=== PATIENT | female | born 1990 | race Caucasian/White ===

== ENCOUNTER 2020-06-29 09:48 | Outpatient (REF) | payer OTHER, SELFPAY | END 2020-06-29 09:49 | disposition home or self-care (01) | LOC: HO.LNP 09:48 | PROVIDERS: Visit Provider Advanced Practice Midwife | DX: Z13.89 Encounter for screening for other disorder (principal) | CPT/HCPCS: 88141 ==

== ENCOUNTER 2020-06-30 11:02 | Outpatient (REF) | payer OTHER, SELFPAY | END 2020-06-30 11:03 | disposition home or self-care (01) | LOC: HO.LAB 11:02 | PROVIDERS: Visit Provider Advanced Practice Midwife | DX: Z01.419 Encounter for gynecological examination (general) (routine) without abnormal findings (principal) | CPT/HCPCS: 88142 ==

== ENCOUNTER 2020-08-14 08:04 | Emergency (ER) | payer OTHER, SELFPAY ==
[2020-08-14 09:02] VITALS: BP 110/78; PULSE 88; RESP 17; TEMP 37.3; O2SAT 98; BMI 26.2
[2020-08-14 09:46] LABS: MANUAL DIFF FLAG NO
[2020-08-14 09:48] LABS: Basophils Percent Auto 0.4 % (0-2); Eosinophils Percent Auto 0.4 % (0-4); Hematocrit 40.7 % (37-47); Hemoglobin 13.9 g/dl (12.0-16.0); Imm Gran Abs Auto 0.01 X10*3/uL (0.00-0.03); Imm Gran Pct Auto 0.1 % (0.0-0.4); Lymphocytes Absolute Auto 2.9 X10*3/uL (1.2-4.9); Lymphocytes Percent Auto 41.4 % (20-40); Mean Corpuscular HGB Conc 34.2 g/dl (31.0-35.0); Mean Corpuscular Volume 87.7 fL (80-98); Mean Platelet Volume 9.8 fL (9.4-12.3); Monocytes Absolute Auto 0.7 X10*3/uL (0.1-1.2); Monocytes Percent Auto 9.4 % (2-11); Neutrophils Absolute Auto 3.4 X10*3/uL (2.0-8.3); Neutrophils Percent Auto 48.3 % (45-73); Platelet Count 331 X10*3/uL (160-400); Red Blood Count 4.64 X10*6/uL (4.20-5.50); Red Cell Distribution Width 12.2 % (11.0-16.0)
[2020-08-14 09:50] LABS: Glucose Urine UA NEG (NEG); Leukocyte Esterase Urine 3+ (NEG); Nitrite Urine NEG (NEG); Urine Blood 2+ (NEG); Urine Ketones NEG (NEG); Urine Protein NEG (NEG-TRACE)
[2020-08-14] MEDS: 0.9 % Sodium Chloride 1,000 ML 999 ML IV (09:51)
[2020-08-14 09:52] LABS: Appearance Urine CLOUDY; Color Urine YELLOW; UPreg QC Valid YES
[2020-08-14] MEDS: HYDROmorphone HCl 0.5 MG/0.5 ML SYRINGE IVPUSH (09:52)
[2020-08-14] MEDS: ondansetron HCL 4 MG/2 ML VIAL IVPUSH (09:52)
[2020-08-14 09:53] LABS: Urine Pregnancy NEGATIVE (NEGATIVE)
[2020-08-14 09:58] LABS: INTERNATIONAL NORM RATIO 1.1 (0.9-1.1); Prothrombin Time 12.6 SEC (10.8-13.0)
[2020-08-14 09:59] LABS: Bacteria Urine 1+ /LPF; Squamous Epithelial Cell Urine 3+ /LPF; WBC Urine 50-75 /HPF (0-4)
[2020-08-14 10:01] LABS: Partial Thromboplastin Time 34.3 SEC (24.1-38.0)
[2020-08-14 10:40] LABS: Alanine Aminotransferase 38 U/L (0-31); Albumin Level 4.3 g/dL (3.5-5.0); Alkaline Phosphatase 75 U/L (39-117); Anion Gap 14 (12-20); Aspartate Amino Transferase 30 U/L (5-31); Bilirubin Total 0.8 mg/dL (0.0-1.0); Blood Urea Nitrogen 12 mg/dL (9-16); Calcium 9.7 mg/dL (8.4-10.2); Carbon Dioxide 27 mmol/L (22-29); Chloride 105 mmol/L (96-108); Estimated Glomerular Filt Rate > 60; Glucose Random 101 mg/dL (60-115); Potassium 4.4 mmol/l (3.3-5.1); Sodium 142 mmol/L (135-145)
--- NOTE | 2020-08-14 10:43 | ED_ITS ---
HPI - Abdominal Pain General Chief Complaint: Abdominal Pain Stated Complaint: RT SIDE PAIN Time Seen by Provider: 08/14/20 09:11 Source: patient Mode of arrival: ambulatory Limitations: no limitations History of Present Illness HPI narrative: 29-year-old female with history of cerebral palsy who is relatively independent sexually active has IUD has history of abdominal problems she had recurrent elevated liver function test according to her thought to be gallbladder related in 2017 had cholecystectomy and still has intermittent upper abdominal pain. States Saturday she has some takeout and developed upper abdo melvin pain and has since has had pain with p.o. intake and causing her to have nausea and vomiting. Pain is described as sharp stabbing /10. Pain is intermittent. There is intermittent associated nausea and vomiting but no diarrhea. There is no fever or chills. She states she did cover COVID test 2 weeks ago that was negative she has not been outside the house does not have any URI symptoms. States she does not want other COVID test. MD elicited complaint: abdominal pain Pertinent past history: other (Gallstones, elevated liver function test) Pain Consistency: intermittent Location: epigastric and RUQ Severity: moderate Quality: stabbing Radiation: none Migration to: no migration Relieving factors: nothing Associated symptoms: denies other symptoms Related Data Previous Rx's Medication Instructions Recorded omeprazole magnesium [Prilosec OTC] 20 mg PO DAILY #14 tab 08/14/20 ondansetron HCl [Zofran] 4 mg PO Q8H PRN #10 tab 08/14/20 Allergies Allergy/AdvReac Type Severity Reaction Status Date / Time acetaminophen [From TYLENOL] Allergy Unknown TOLD TO Verified 08/14/20 13:23 AVOID morphine [MORPHINE] Allergy Unknown HIVES Verified 08/14/20 13:23 Review of Systems Review of Systems Constitutional: No Weight loss, No Fever, No Chills, No Night Sweats, No F atigue, No Malaise ENT/Mouth: No Hearing loss, No Ear Pain, No Nasal Congestion, No Sinus Pain, No Hoarseness, No sore throat, No Rhinorrhea, No Swallowing Difficulty Eyes: No Eye Pain, No Swelling, No Redness, No Foreign Body, No Discharge, No Vision Changes Cardiovascular: No Chest Pain, No SOB, No Dyspnea on Exertion, No Orthopnea, No Edema, No Palpitations Respiratory: No Cough, No Sputum, No Wheezing, No Smoke Exposure, No Dyspnea Gastrointestinal: No Nausea, No Vomiting, No Diarrhea, No Constipation, No abdominal Pain, No Hematochezia, No Melena, as noted in HPI Genitourinary: no irregular bleeding, No Dysuria, No Urinary Frequency, No Hematuria, No Urinary Incontinence, No Urgency, No Flank Pain Musculoskeletal: No joint pain, No Myalgias, No Joint Swelling Skin: No Skin Lesions, No rash Neuro: No Weakness, No Numbness, No Paresthesias, No Loss of Consciousness, No Dizziness, No Headache Psych: No Social Issues Heme/Lymph: No Bruising, No Bleeding,No Lymphadenopathy Endocrine: No Polyuria, No Polydipsia, No Temperature Intolerance Physical Exam Vital Signs: Vital Signs: Last Vital Signs Temp 98.7 F 08/14/20 13:18 Pulse 72 08/14/20 13:18 Resp 18 08/14/20 13:18 BP 118/78 08/14/20 13:18 Pulse Ox 98 08/14/20 13:18 Body Mass Index 26.2 Reviewed Const: General: cooperative and healthy appearing; No acute distress or intoxicated appearing Nutritional Appearance: average body habitus Orientation/consciousness: patient oriented x3 HENMT: Head: Yes normal to inspection Ears: hearing grossly normal bilaterally Eyes: General: appearance normal, both eyes and all related structures Vis ual Brooks: normal visual brooks by confrontation Neck: Neck: Yes normal visual inspection, No positive Brudzinski's sign, No positive Kernig's sign and No tender Thyroid: Thyroid normal Chest: Chest palpation & inspection: normal inspection of the chest Resp: Effort & Inspection: normal respiratory effort Auscultation: clear to auscultation bilaterally Cardio: Jugular venous distension: no JVD Rhythm: regular rhythm Heart sounds: S1 normal heart sound present and S2 normal heart sound present GI: Inspection: Yes normal to inspection Palpation (GI): Tenderness to palpation present (GI), no guarding and not rigid Percussion: Yes normal to percussion Auscultation: normal bowel sounds : General: Yes no CVA tenderness Back/Spine/Pelvis: Back: no CVA tenderness Skin: General skin exam: no rashes or lesions noted Neuro: General: patient oriented x3 Extrem: General: Yes normal to inspection Course Course Course Narrative: Labs overall stable still having nausea and complaining of abdominal pain. At this time risk and benefits of having CT scan with radiation reviewed with her she is agreeable will go ahead and get abdominal CT scan rule out acute infectious/obstructive pathology. Will treat with IV Reglan and 25 mg Benadryl. Reevaluation(s) Reevaluation #1: After being medicated has been resting comfortably sleeping awoke was able to drink paul kyleigh. CT of the abdomen pelvis show no acute pathology. Will discharge home with Zofran and Prijuan pablosehiren with outpatient follow- up. Plan reviewed patient agreeable comfortable plan stable for discharge. MDM - Abdominal Pain Differential Diagnosis Differential diagnosis: Likely abdominal pain, diverticulitis, gastroenteritis and gastritis; Unlikely aortic dissection, acute appendicitis, bowel perforatio n, calculus of kidney, constipation, endometriosis, mesenteric ischemia, ovarian cyst, pancreatitis, peptic ulcer disease, renal colic and small bowel obstruction Medical Records Attestation: I reviewed the patient's medical records. Lab Data Attestation: I reviewed the patient's lab results. Result diagrams: 08/14/20 09:41 08/14/20 09:41 Labs: Lab Results 08/14/20 08/14/20 08/14/20 Range/Units 09:41 09:41 09:41 WBC 7.0 (4.8-10.8) X10*3/uL RBC 4.64 (4.20-5.50) X10*6/uL Hgb 13.9 (12.0-16.0) g/dl Hct 40.7 (37-47) % MCV 87.7 (80-98) fL MCH 30.0 (27.0-33.0) pg MCHC 34.2 (31.0-35.0) g/dl RDW 12.2 (11.0-16.0) % Plt Count 331 (160-400) X10*3/uL MPV 9.8 (9.4-12.3) fL Immature Gran % (Auto) 0.1 (0.0-0.4) % Neut % (Auto) 48.3 (45-73) % Lymph % (Auto) 41.4 H (20-40) % Letcher % (Auto) 9.4 (2-11) % Eos % (Auto) 0.4 (0-4) % Baso % (Auto) 0.4 (0-2) % Lymph # (Auto) 2.9 (1.2-4.9) X10*3/uL Letcher # (Auto) 0.7 (0.1-1.2) X10*3/uL Eos # (Auto) 0.0 (0.0-0.4) X10*3/uL Baso # (Auto) 0.0 (0.0-0.2) X10*3/uL Abs Immat Gran (auto) 0.01 (0.00-0.03) X10*3/uL Absolute Neuts (auto) 3.4 (2.0-8.3) X10*3/uL Absolute Nucleated RBC 0.000 (0.0-0.012) X10*3/uL Nucleated RBC % (auto) 0.0 (0.0-0.2) /100WBC PT 12.6 (10.8-13.0) SEC INR 1.1 (0.9-1.1) APTT 34.3 (24.1-38.0) SEC Sodium 142 (135-145) mmol/L Potassium 4.4 (3.3-5.1) mmol/l Chloride 105 (96-108) mmol/L Carbon Dioxide 27 (22-29) mmol/L Anion Gap 14 (12-20) BUN 12 (9-16) mg/dL Creatinine 0.71 (0.5-1.4) mg/dL Estim Creat Clear Calc 93.0 Estimated GFR > 60 Random Glucose 101 (60-115) mg/dL Calcium 9.7 (8.4-10.2) mg/dL Total Bilirubin 0.8 (0.0-1.0) mg/dL AST 30 (5-31) U/L ALT 38 H (0-31) U/L Alkaline Phosphatase 75 (39-117) U/L Total Protein 7.0 (6.5-8.0) g/dL Albumin 4.3 (3.5-5.0) g/dL Lipase 24 (8-78) U/L Urine Color Urine Appearance Urine pH (5.0-8.0) Ur Specific [place] (1.005-1.025) Urine Protein (NEG-TRACE) MG/DL Urine Glucose (UA) (NEG) MG/DL Urine Ketones (NEG) MG/DL Urine Blood (NEG) Urine Nitrite (NEG) Ur Leukocyte Esterase (NEG) Urine RBC (0) /HPF Urine WBC (0-4) /HPF Ur Squamous Epith Cells /LPF Urine Bacteria /LPF Urine Test (NEGATIVE) 08/14/20 Range/Units 09:41 WBC (4.8-10.8) X10*3/uL RBC (4.20-5.50) X10*6/uL Hgb (12.0-16.0) g/dl Hct (37-47) % MCV (80-98) fL MCH (27.0-33.0) pg MCHC (31.0-35.0) g/dl RDW (11.0-16.0) % Plt Count (160-400) X10*3/uL MPV (9.4-12.3) fL Immature Gran % (Auto) (0.0-0.4) % Neut % (Auto) (45-73) % Lymph % (Auto) (20-40) % Letcher % (Auto) (2-11) % Eos % (Auto) (0-4) % Baso % (Auto) (0-2) % Lymph # (Auto) (1.2-4.9) X10*3/uL Letcher # (Auto) (0.1-1.2) X10*3/uL Eos # (Auto) (0.0-0.4) X10*3/uL Baso # (Auto) (0.0-0.2) X10*3/uL Abs Immat Gran (auto) (0.00-0.03) X10*3/uL Absolute Neuts (auto) (2.0-8.3) X10*3/uL Absolute Nucleated RBC (0.0-0.012) X10*3/uL Nucleated RBC % (auto) (0.0-0.2) /100WBC PT (10.8-13.0) SEC INR (0.9-1.1) APTT (24.1-38.0) SEC Sodium (135-145) mmol/L Potassium (3.3-5.1) mmol/l Chloride (96-108) mmol/L Carbon Dioxide (22-29) mmol/L Anion Gap (12-20) BUN (9-16) mg/dL Creatinine (0.5-1.4) mg/dL Estim Creat Clear Calc Estimated GFR Random Glucose (60-115) mg/dL Calcium (8.4-10.2) mg/dL Total Bilirubin (0.0-1.0) mg/dL AST (5-31) U/L ALT (0-31) U/L Alkaline Phosphatase (39-117) U/L Total Protein (6.5-8.0) g/dL Albumin (3.5-5.0) g/dL Lipase (8-78) U/L Urine Color YELLOW Urine Appearance CLOUDY Urine pH 7.0 (5.0-8.0) Ur Specific [place] 1.020 (1.005-1.025) Urine Protein NEG (NEG-TRACE) MG/DL Urine Glucose (UA) NEG (NEG) MG/DL Urine Ketones NEG (NEG) MG/DL Urine Blood 2+ H (NEG) Urine Nitrite NEG (NEG) Ur Leukocyte Esterase 3+ H (NEG) Urine RBC 15-29 H (0) /HPF Urine WBC 50-75 H (0-4) /HPF Ur Squamous Epith Cells 3+ /LPF Urine Bacteria 1+ /LPF Urine Test NEGATIVE (NEGATIVE) Imaging Data Abdominal/pelvis CT: Radiologist's impression: [place] [id number] CT Scan Report Signed Patient: Lan Stein#: [id number] : 1990Acct:[id number] Age/Sex: 29 / FADM Date: 08/14/20 Loc: .ED Attending Dr: Ordering Physician: Josiah Miles NP Date of Service: 08/14/20 Procedure(s): CT abdomen pelvis w con Accession Number(s): [id number] cc: Josiah Miles [employer] PROFESSOR~ EXAMINATION: CT ABDOMEN AND PELVIS WITH CONTRAST CLINICAL INFORMATION: Upper abdominal pain. COMPARISON: 07/03/19. TECHNIQUE: Multidetector volumetric images were obtained from the superior aspect of the liver through the pubic symphysis following administration 85 mL of Omnipaque 350 intravenous contrast. Sagittal and coronal reformatted images were obtained on the technologist's workstation. Oral contrast: No This CT examination was performed using dose optimization techniques as appropriate, variously including the following: *Automated exposure control *Adjustment of mA and/or kV according to patient size (this includes techniques or standardized protocols for targeted exams where dose is matched to indication/reason for exam; i.e. extremities or head) *Use of iterative reconstruction technique DLP: 583 mGy-cm FINDINGS: LUNG BASES: No change in small nodular density anteriorly at the right lung base measuring 0.2 cm. Otherwise unremarkable. LIVER, GALLBLADDER, AND BILIARY TREE: The liver is normal in size, shape, and attenuation. No focal hepatic lesion or biliary ductal dilatation is present. The gallbladder has been surgically removed. No significant ductal dilatation is evident. PANCREAS: Unremarkable. SPLEEN: Unremarkable. ADRENAL GLANDS: Unremarkable. KIDNEYS AND URETERS: The kidneys are normal in size, shape, and attenuation. No hydronephrosis, hydroureter, or calculi seen. No perinephric stranding. BLADDER: Unremarkable. GASTROINTESTINAL TRACT: The stomach and duodenum are unremarkable. The small bowel mesentery are unremarkable. The colon is unremarkable. The appendix is normal. ABDOMINAL WALL: No significant hernia is appreciated. LYMPH NODES: Normal. VASCULAR: Unremarkable. PELVIC VISCERA: An IUD is present centrally within the uterus. No adnexal abnormality demonstrated. A small collapsed cyst is seen in the right ovary. There is trace free fluid. OSSEOUS STRUCTURES: Unremarkable. CT/CT abdomen pelvis w con IMPRESSION: No acute abnormality demonstrated. No cause for abdominal pain identified. Dictated By:Ama QUINONES MD Signed By:<Electronically signed by Ama QUINONES MD in OV>08/14/20 1228 DD/ 1110 TD/TT: Telecommunications Line Installer: TB Discharge Plan Discharge Clinical Impression: Abdominal pain Patient Disposition: Home, Self-Care Instructions: Abdominal Pain (ED) Additional Instructions: Drink plenty of fluids Gradually increase her diet as tolerated Taking medication prescribed Follow up with her primary care doctor as discussed Return if any concerns or worsening symptoms Thank you Prescriptions: New ondansetron HCl [Zofran] 4 mg tablet 4 mg PO Q8H PRN (Reason: nausea and vomiting) Qty: 10 RF: 0 omeprazole magnesium [Prilosec OTC] 20 mg tablet,delayed release (DR/EC) 20 mg PO DAILY Qty: 14 RF: 0 Referrals: Yoselyn Barnes MD [Primary Care Provider] - 1 week COUNT INCLUDES THE [facility] Past Medical History Medical History (Updated 08/14/20 @ 14:46 by Josiah Miles NP) Gallbladder & bile duct stone with obstruction Family History Family History (Updated 06/29/20 @ 10:09 by Derick Barroso CMA) Mother Breast cancer Diabetes Social History Social History (Updated 06/29/20 @ 10:01 by Derick Barroso CMA) Alcohol intake: never Smoking Status: Never smoker Second Hand Smoke Exposure: No Substance Use Type: Marijuana Substance Use Frequency: Occasionally Advance Directives: No Gender identity: female
[2020-08-14 10:57] VITALS: BP 120/90; PULSE 68; RESP 16; O2SAT 97
--- NOTE | 2020-08-14 11:03 | PC.NURSE ---
Pt states that she is still experiencing significant abd pain. 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 Plan to order/give additional pain medication and send for imaging studies.
[2020-08-14 11:08] LABS: Lipase 24 U/L (8-78)
--- NOTE | 2020-08-14 11:10 | CT_ITS ---
EXAMINATION: CT ABDOMEN AND PELVIS WITH CONTRAST CLINICAL INFORMATION: Upper abdominal pain. COMPARISON: 07/03/19. TECHNIQUE: Multidetector volumetric images were obtained from the superior aspect of the liver through the pubic symphysis following administration 85 mL of Omnipaque 350 intravenous contrast. Sagittal and coronal reformatted images were obtained on the technologist's workstation. Oral contrast: No This CT examination was performed using dose optimization techniques as appropriate, variously including the following: *Automated exposure control *Adjustment of mA and/or kV according to patient size (this includes techniques or standardized protocols for targeted exams where dose is matched to indication/reason for exam; i.e. extremities or head) *Use of iterative reconstruction technique DLP: 583 mGy-cm FINDINGS: LUNG BASES: No change in small nodular density anteriorly at the right lung base measuring 0.2 cm. Otherwise unremarkable. LIVER, GALLBLADDER, AND BILIARY TREE: The liver is normal in size, shape, and attenuation. No focal hepatic lesion or biliary ductal dilatation is present. The gallbladder has been surgically removed. No significant ductal dilatation is evident. PANCREAS: Unremarkable. SPLEEN: Unremarkable. ADRENAL GLANDS: Unremarkable. KIDNEYS AND URETERS: The kidneys are normal in size, shape, and attenuation. No hydronephrosis, hydroureter, or calculi seen. No perinephric stranding. BLADDER: Unremarkable. GASTROINTESTINAL TRACT: The stomach and duodenum are unremarkable. The small bowel mesentery are unremarkable. The colon is unremarkable. The appendix is normal. ABDOMINAL WALL: No significant hernia is appreciated. LYMPH NODES: Normal. VASCULAR: Unremarkable. PELVIC VISCERA: An IUD is present centrally within the uterus. No adnexal abnormality demonstrated. A small collapsed cyst is seen in the right ovary. There is trace free fluid. OSSEOUS STRUCTURES: Unremarkable. CT/CT abdomen pelvis w con IMPRESSION: No acute abnormality demonstrated. No cause for abdominal pain identified.
[2020-08-14] MEDS: Lidocaine HCl Viscous 2 % 15 ML SOLUTION 10 ML MUCOUS MEM (11:58)
[2020-08-14] MEDS: Magnesium Hydrox/Alum Hydrox 30 ML ORAL.SUSP PO (11:59)
--- NOTE | 2020-08-14 12:01 | PC.NURSE ---
GI cocktail given. Will continue to assess pain.
[2020-08-14] MEDS: iohexoL 350 MG/ML 100 ML INFUS..BTL IV (12:03)
[2020-08-14] MEDS: Metoclopramide HCl 10 MG/2 ML VIAL IVPUSH (13:14)
[2020-08-14] MEDS: diphenhydrAMINE HCL 50 MG/ML VIAL 25 MG IVPUSH (13:14)
--- NOTE | 2020-08-14 13:16 | PC.NURSE ---
Pt had episode of vomiting. She was given IV benedryl and reglan. Awaiting CT results.
[2020-08-14 13:18] VITALS: BP 118/78; PULSE 72; RESP 18; TEMP 37.1; O2SAT 98
[2020-08-14 14:00] VITALS: BP 107/88; PULSE 84; TEMP 36.6; O2SAT 96
== END 2020-08-14 15:58 | disposition home or self-care (01) ==
PROVIDERS: Nurse Practitioner Primary Care; Emergency Provider Emergency Medicine Emergency Medical Services; PCP Internal Medicine
DX: R10.2 Pelvic and perineal pain (principal); R11.2 Nausea with vomiting, unspecified; R10.10 Upper abdominal pain, unspecified; Z79.899 Other long term (current) drug therapy
CPT/HCPCS: 36415; 74177; 80053; 81001; 81025; 83690; 85025; 85610; 85730; 87086; 96361; 96374; 96375; 99284; J1170; J1200; J2405; J2765; Q9967

== ENCOUNTER 2020-08-17 12:22 | Emergency (ER) | payer OTHER, SELFPAY ==
[2020-08-17 12:27] VITALS: BP 119/92; BP 150/80; PULSE 70; PULSE 84; RESP 16; TEMP 36.9; O2SAT 96; O2SAT 98; BMI 26.2
--- NOTE | 2020-08-17 12:51 | ED_ITS ---
HPI - General Adult General Chief complaint: General Medical Stated complaint: flank pain Time Seen by Provider: 08/17/20 12:26 Source: patient and EMS Mode of arrival: EMS Limitations: physical limitation (Cerebral palsy) History of Present Illness HPI narrative: 29yoF c PMHx of Cerebral Palsy, sexually active c one partner c IUD in place, past hx of Bacterial vaginosis infections and UTI's and PSHx of cholecystectomy and persistent elevated liver enzymes and intermittent upper abd pain presenting to the ED c c/o Right flank/abd pain x 5 days concern about ulcer/lesions on my liver seen on US x 2 years ago she reports at [facility]. Pt repports increased urgency/frequency. Reports she was seen here on 08/14/2019 and had an extensive work up including a CT scan of abd/pelvis which was unremarkable. Denies any fevers, chills, nausea/vomiting, dysuria, hematuria, vaginal discharge, constipation or diarrhea. Denies any other symptom complaints or concerns at this time. Related Data Previous Rx's Medication Instructions Recorded omeprazole magnesium [Prilosec OTC] 20 mg PO DAILY #14 tab 08/14/20 ondansetron HCl [Zofran] 4 mg PO Q8H PRN #10 tab 08/14/20 metronidazole [Flagyl] 500 mg PO BID 7 Days #14 tab 08/17/20 nitrofurantoin monohyd/m-cryst 100 mg PO BID 7 Days #14 cap 08/17/20 [Macrobid] Allergies Allergy/AdvReac Type Severity Reaction Status Date / Time acetaminophen [From TYLENOL] Allergy Unknown TOLD TO Verified 08/14/20 13:23 AVOID morphine [MORPHINE] Allergy Unknown HIVES Verified 08/14/20 13:23 Review of Systems Review of Systems: Constitutional : No Weight loss, No Fever, No Chills, No Night Sweats, No Fatigue, NoMalaise ENT/Mouth: No ear pain, No sore throat, No Difficulty swallowing Cardiovascular : No Chest Pain, No SOB, No Dyspnea on Exertion, No Orthopnea, NoEdema, No Palpitations Respiratory : No Cough, No Sputum, No Wheezing, No Dyspnea Gastrointestinal : No Nausea, No Vomiting, No Diarrhea, + abdominal Pain, No Hematochezia, No Melena Genitourinary : + Flank pain, + Urinary Frequency/urgency, No irregular bleeding, No Dysuria, No Hematuria, No Urinary Incontinence, No abnormal discharge Musculoskeletal : No joint pain, No Myalgias, No Joint Swelling Skin : No Skin Lesions, No rash Neuro : No Weakness, No Numbness, No Paresthesias, No Loss of Consciousness, NoDizziness, No Headache Psych : No Social Issues, Heme/Lymph: No Bruising, No Bleeding,No Lymphadenopathy Endocrine : No Polyuria, No Polydipsia, No Temperature Intolerance Yes all other systems are reviewed and are negative [facility] Past Medical History Attestation statement: The following information was validated with the patient. Medical History Gallbladder & bile duct stone with obstruction Family History Family History Mother Breast cancer Diabetes Social History Social History Alcohol intake: never Smoking Status: Never smoker Second Hand Smoke Exposure: No Use of substances other than those prescribed or required for medical reasons: No Substance Use Type: Marijuana Advance Directives: No Advance Directives Information Provided: No Gender identity: female Physical Exam Vital Signs: Vital Signs: Last Vital Signs Temp 98.6 F 08/17/20 14:34 Pulse 66 08/17/20 14:34 Resp 16 08/17/20 14:34 BP 137/81 08/17/20 14:34 Pulse Ox 97 08/17/20 14:34 Body Mass Index 26.2 vital signs have been reviewed as normal and appeared to be correct. Blood pressure normal. Heart rate normal. Respiration rate normal. Temperature normal. Oxygen saturation normal. Appearance: Alert. Oriented X3. No acute distress. Head: Normal external exam. Normocephalic. Eyes: PERRLA. EOMI. Conjunctiva and sclera normal. Eyelids normal. ENT: Pharynx normal. Uvula midline. Moist mucous membranes. Neck: Normal inspection. Neck supple. FROM. No adenopathy. No meningeal signs. CVS: Normal heart rate and rhythm. Heart sound normal. No murmurs noted. Pulses normal throughout. Respiratory: No respiratory distress. Painless inspiration. Breath sounds normal. No wheezes/rales/rhonchi noted. Chest nontender. No accessory muscle usage noted or decreased air movement noted. Abdomen: Soft and TTP at right upper/right flank. No rigidity. Negative Kaye sign. Bowel sounds normal in all 4 quadrants. No distention noted. No organomegaly noted. No visible injury noted. No rebound tenderness. Negative Rovsing sign. Negative obturator's sign. Negative psoas sign. Back: No CVA tenderness. Full range of motion noted. Skin: Skin warm and dry. Normal skin color. Normal skin turgor. No rashes/lesions/lacerations noted. Extremities: Extremities exhibit normal range of motion. Extremities nontender. Neuro: Speech is slurred sometimes difficulty to understand chronic per patient. Oriented X 3. No motor deficit. No sensory deficit. Reflexes normal. Course Course Course Narrative: 12:38pm - 29yoF c PMHx of Cerebral Palsy, sexually active c one partner c IUD in place, past hx of Bacterial vaginosis infections and UTI's and PSHx of cholecystectomy and persistent elevated liver enzymes and intermittent upper abd pain presenting to the ED c c/o Right flank/abd pain x 5 days concern about ulcer/lesions on my liver seen on US x 2 years ago she reports at [facility]. Pt repports increased urgency/frequency. Reports she was seen here on 08/14/2019 and had an extensive work up including a CT scan of abd/pelvis which was unremarkable. - on exam patient is alert and oriented x3. Not in any acute distress. Vital signs are stable within normal limits. - Plan: Labs, UA, UHCG, bacterial vaginosis/yeast/Trichomonas specimens, gonorrhea/chlamydia specimen, abdominal ultrasound of liver then re-evaluate. Reevaluation(s) Reevaluation #1: - abdominal ultrasound of the liver within normal limits no acute processes of the liver noted. - patient refusing bacterial vaginosis/yeast/Trichomonas/gonorrhea/chlamydia specimen. Reports that she was just tested for everything this month and was negative. - awaiting labs, UA and UHCG. Will re-evaluate. Time: 13:55 Reevaluation #2: - All labs WNL. UA with leukocytes negative for nitrates and bacteria therefore will treat for bacterial vaginosis and UTI. Will DC home at this time instructions return if any new or worsening symptoms to follow up with primary care provider. Patient understands agrees the plan. Time: 15:50 Medical Decision Making Medical Records Medical records reviewed: Yes I reviewed the patient's medical records. Lab Data Lab results reviewed: Yes I reviewed the patient's lab results. Result diagrams: 08/17/20 14:28 08/17/20 14:28 Labs: Lab Results 08/17/20 08/17/20 08/17/20 Range/Units 14:28 14:28 14:28 WBC 6.7 (4.8-10.8) X10*3/uL RBC 4.80 (4.20-5.50) X10*6/uL Hgb 14.4 (12.0-16.0) g/dl Hct 41.4 (37-47) % MCV 86.3 (80-98) fL MCH 30.0 (27.0-33.0) pg MCHC 34.8 (31.0-35.0) g/dl RDW 12.0 (11.0-16.0) % Plt Count 343 (160-400) X10*3/uL MPV 10.1 (9.4-12.3) fL Immature Gran % (Auto) 0.3 (0.0-0.4) % Neut % (Auto) 58.5 (45-73) % Lymph % (Auto) 31.7 (20-40) % [place] % (Auto) 8.1 (2-11) % Eos % (Auto) 0.9 (0-4) % Baso % (Auto) 0.5 (0-2) % Lymph # (Auto) 2.1 (1.2-4.9) X10*3/uL [place] # (Auto) 0.5 (0.1-1.2) X10*3/uL Eos # (Auto) 0.1 (0.0-0.4) X10*3/uL Baso # (Auto) 0.0 (0.0-0.2) X10*3/uL Abs Immat Gran (auto) 0.02 (0.00-0.03) X10*3/uL Absolute Neuts (auto) 3.9 (2.0-8.3) X10*3/uL Absolute Nucleated RBC 0.000 (0.0-0.012) X10*3/uL Nucleated RBC % (auto) 0.0 (0.0-0.2) /100WBC Hold Blue Top Not Reportable Sodium 141 (135-145) mmol/L Potassium 3.9 (3.3-5.1) mmol/l Chloride 104 (96-108) mmol/L Carbon Dioxide 27 (22-29) mmol/L Anion Gap 14 (12-20) BUN 9 (9-16) mg/dL Creatinine 0.69 (0.5-1.4) mg/dL Estim Creat Clear Calc 95.7 Estimated GFR > 60 Random Glucose 97 (60-115) mg/dL Calcium 9.6 (8.4-10.2) mg/dL Magnesium 2.3 (1.6-2.6) mg/dL Total Bilirubin 0.4 (0.0-1.0) mg/dL Direct Bilirubin 0.2 (0.0-0.5) mg/dL AST 21 (5-31) U/L ALT 44 H (0-31) U/L Alkaline Phosphatase 84 (39-117) U/L Total Protein 7.0 (6.5-8.0) g/dL Albumin 4.3 (3.5-5.0) g/dL Urine Color Urine Appearance Urine pH (5.0-8.0) Ur Specific [place] (1.005-1.025) Urine Protein (NEG-TRACE) MG/DL Urine Glucose (UA) (NEG) MG/DL Urine Ketones (NEG) MG/DL Urine Blood (NEG) Urine Nitrite (NEG) Ur Leukocyte Esterase (NEG) Urine RBC (0) /HPF Urine WBC (0-4) /HPF Ur Squamous Epith Cells /LPF Urine Bacteria /LPF Urine Test (NEGATIVE) 08/17/20 Range/Units 14:46 WBC (4.8-10.8) X10*3/uL RBC (4.20-5.50) X10*6/uL Hgb (12.0-16.0) g/dl Hct (37-47) % MCV (80-98) fL MCH (27.0-33.0) pg MCHC (31.0-35.0) g/dl RDW (11.0-16.0) % Plt Count (160-400) X10*3/uL MPV (9.4-12.3) fL Immature Gran % (Auto) (0.0-0.4) % Neut % (Auto) (45-73) % Lymph % (Auto) (20-40) % [place] % (Auto) (2-11) % Eos % (Auto) (0-4) % Baso % (Auto) (0-2) % Lymph # (Auto) (1.2-4.9) X10*3/uL [place] # (Auto) (0.1-1.2) X10*3/uL Eos # (Auto) (0.0-0.4) X10*3/uL Baso # (Auto) (0.0-0.2) X10*3/uL Abs Immat Gran (auto) (0.00-0.03) X10*3/uL Absolute Neuts (auto) (2.0-8.3) X10*3/uL Absolute Nucleated RBC (0.0-0.012) X10*3/uL Nucleated RBC % (auto) (0.0-0.2) /100WBC Hold Blue Top Sodium (135-145) mmol/L Potassium (3.3-5.1) mmol/l Chloride (96-108) mmol/L Carbon Dioxide (22-29) mmol/L Anion Gap (12-20) BUN (9-16) mg/dL Creatinine (0.5-1.4) mg/dL Estim Creat Clear Calc Estimated GFR Random Glucose (60-115) mg/dL Calcium (8.4-10.2) mg/dL Magnesium (1.6-2.6) mg/dL Total Bilirubin (0.0-1.0) mg/dL Direct Bilirubin (0.0-0.5) mg/dL AST (5-31) U/L ALT (0-31) U/L Alkaline Phosphatase (39-117) U/L Total Protein (6.5-8.0) g/dL Albumin (3.5-5.0) g/dL Urine Color YELLOW Urine Appearance CLOUDY Urine pH 6.0 (5.0-8.0) Ur Specific [place] 1.010 (1.005-1.025) Urine Protein NEG (NEG-TRACE) MG/DL Urine Glucose (UA) NEG (NEG) MG/DL Urine Ketones NEG (NEG) MG/DL Urine Blood 3+ H (NEG) Urine Nitrite NEG (NEG) Ur Leukocyte Esterase 2+ H (NEG) Urine RBC 76-150 H (0) /HPF Urine WBC 5-9 H (0-4) /HPF Ur Squamous Epith Cells 1+ /LPF Urine Bacteria TRACE /LPF Urine Test NEGATIVE (NEGATIVE) Imaging Data Abdominal ultrasound: Attestation: I personally reviewed and interpreted this imaging study as follows: Radiologist's impression: FINDINGS: The cardiac and mediastinal contours are stable. There are increased coarse reticular markings seen in the lungs similar to previous recent chest x-ray. No definite infiltrate is seen. There is no pleural effusion or pneumothorax. Bony structures are unremarkable. XR/XR chest 1V IMPRESSION: Increased coarse reticular markings similar to recent exam. No infiltrate seen. Discharge Plan Discharge Clinical Impression: Bacterial vaginosis, Right lateral abdominal pain UTI (urinary tract infection) Qualifiers: Urinary tract infection type: acute cystitis Hematuria presence: with hematuria Qualified Code(s): N30.01 - Acute cystitis with hematuria Patient Disposition: Home, Self-Care Instructions: Bacterial Vaginosis (ED), Urinary Tract Infection in Women (ED) Prescriptions: New nitrofurantoin monohyd/m-cryst [Macrobid] 100 mg capsule 100 mg PO BID 7 Days Qty: 14 RF: 0 metronidazole [Flagyl] 500 mg tablet 500 mg PO BID 7 Days Qty: 14 RF: 0 No Action ondansetron HCl [Zofran] 4 mg tablet 4 mg PO Q8H PRN (Reason: nausea and vomiting) Qty: 10 RF: 0 omeprazole magnesium [Prilosec OTC] 20 mg tablet,delayed release (DR/EC) 20 mg PO DAILY Qty: 14 RF: 0 Referrals: Yoselyn Barnes MD [Primary Care Provider] - 2 days Print Language: Luxembourgish
--- NOTE | 2020-08-17 12:52 | US_ITS ---
EXAMINATION: US ABDOMEN LIMITED CLINICAL INFORMATION: Right abdomen/flank pain. Evaluate liver.. COMPARISON: Previous CT of the abdomen and pelvis most recent 08/14/2020 and abdominal ultrasound May 2018 TECHNIQUE: Real-time imaging of the right upper quadrant abdominal viscera. FINDINGS: LIVER: Normal. The liver is normal in size. The liver contour is normal. Parenchymal echogenicity is normal. No focal hepatic lesion. There is no intrahepatic biliary duct dilatation seen. GALLBLADDER: Surgically removed. US/US abdomen limited IMPRESSION: Normal-appearing liver.
[2020-08-17 14:34] VITALS: BP 137/81; PULSE 66; RESP 16; TEMP 37; O2SAT 97
[2020-08-17 14:40] LABS: Basophils Percent Auto 0.5 % (0-2); Eosinophils Absolute Auto 0.1 X10*3/uL (0.0-0.4); Eosinophils Percent Auto 0.9 % (0-4); Hematocrit 41.4 % (37-47); Hemoglobin 14.4 g/dl (12.0-16.0); Imm Gran Abs Auto 0.02 X10*3/uL (0.00-0.03); Imm Gran Pct Auto 0.3 % (0.0-0.4); Lymphocytes Absolute Auto 2.1 X10*3/uL (1.2-4.9); Lymphocytes Percent Auto 31.7 % (20-40); Mean Corpuscular HGB Conc 34.8 g/dl (31.0-35.0); Mean Corpuscular Volume 86.3 fL (80-98); Mean Platelet Volume 10.1 fL (9.4-12.3); Monocytes Absolute Auto 0.5 X10*3/uL (0.1-1.2); Monocytes Percent Auto 8.1 % (2-11); Neutrophils Absolute Auto 3.9 X10*3/uL (2.0-8.3); Neutrophils Percent Auto 58.5 % (45-73); Platelet Count 343 X10*3/uL (160-400); White Blood Count 6.7 X10*3/uL (4.8-10.8)
[2020-08-17 14:47] LABS: MANUAL DIFF FLAG NO
[2020-08-17 15:03] LABS: Glucose Urine UA NEG (NEG); Leukocyte Esterase Urine 2+ (NEG); Nitrite Urine NEG (NEG); Urine Blood 3+ (NEG); Urine Ketones NEG (NEG); Urine Protein NEG (NEG-TRACE)
[2020-08-17 15:05] LABS: Appearance Urine CLOUDY; Color Urine YELLOW; UPreg QC Valid YES; Urine Pregnancy NEGATIVE (NEGATIVE)
[2020-08-17 15:11] LABS: Bacteria Urine TRACE /LPF; Squamous Epithelial Cell Urine 1+ /LPF
[2020-08-17 15:20] LABS: Alanine Aminotransferase 44 U/L (0-31); Albumin Level 4.3 g/dL (3.5-5.0); Alkaline Phosphatase 84 U/L (39-117); Anion Gap 14 (12-20); Aspartate Amino Transferase 21 U/L (5-31); Bilirubin Direct 0.2 mg/dL (0.0-0.5); Bilirubin Total 0.4 mg/dL (0.0-1.0); Blood Urea Nitrogen 9 mg/dL (9-16); Calcium 9.6 mg/dL (8.4-10.2); Carbon Dioxide 27 mmol/L (22-29); Chloride 104 mmol/L (96-108); Creatinine Clr Calc Pharmacy 95.7; Estimated Glomerular Filt Rate > 60; Glucose Random 97 mg/dL (60-115); Magnesium 2.3 mg/dL (1.6-2.6); Potassium 3.9 mmol/l (3.3-5.1); Sodium 141 mmol/L (135-145)
[2020-08-17 15:54] VITALS: BP 125/70; PULSE 65; RESP 16; TEMP 36.9; O2SAT 97
== END 2020-08-17 16:06 | disposition home or self-care (01) ==
PROVIDERS: Physician Assistant Medical; Emergency Provider Emergency Medicine; PCP Internal Medicine
DX: N76.0 Acute vaginitis (principal); R10.9 Unspecified abdominal pain; Z20.2 Contact with and (suspected) exposure to infections with a predominantly sexual mode of transmission; Z79.899 Other long term (current) drug therapy
CPT/HCPCS: 36415; 76705; 80048; 80076; 81001; 81003; 81025; 83735; 85025; 87086; 87147; 99284

== ENCOUNTER 2020-12-14 13:25 | Outpatient (REF) | payer OTHER, SELFPAY | END 2020-12-14 13:26 | disposition home or self-care (01) | LOC: HO.LAB 13:25 | PROVIDERS: PCP Internal Medicine; Visit Provider Internal Medicine | DX: N32.81 Overactive bladder (principal); R39.15 Urgency of urination | CPT/HCPCS: 87086 ==

== ENCOUNTER 2021-05-06 11:43 | Emergency (ER) | payer OTHER, SELFPAY ==
--- NOTE | ~2021-05-06 | CT_ITS ---
EXAMINATION: CT ABDOMEN AND PELVIS WITH CONTRAST CLINICAL INFORMATION: Right-sided abdominal pain COMPARISON: CT abdomen 08/14/2020 TECHNIQUE: Multidetector volumetric images were obtained from the superior aspect of the liver through the pubic symphysis following administration 85 mL of Omnipaque 350 intravenous contrast. Sagittal and coronal reformatted images were obtained on the technologist's workstation. Oral contrast: No This CT examination was performed using dose optimization techniques as appropriate, variously including the following: *Automated exposure control *Adjustment of mA and/or kV according to patient size (this includes techniques or standardized protocols for targeted exams where dose is matched to indication/reason for exam; i.e. extremities or head) *Use of iterative reconstruction technique DLP: 517 mGy-cm FINDINGS: Respiratory motion artifact with associated limitations. LUNG BASES: The visualized lung bases are unremarkable. LIVER, GALLBLADDER, AND BILIARY TREE: The liver is normal in size, shape, and attenuation. No focal hepatic lesion. No biliary ductal dilatation is present. Status postcholecystectomy. PANCREAS: Unremarkable. SPLEEN: Unremarkable. ADRENAL GLANDS: Unremarkable. KIDNEYS AND URETERS: The kidneys are normal in size, shape, and attenuation. No hydronephrosis, hydroureter, or calculi seen. No perinephric stranding. BLADDER: Unremarkable. GASTROINTESTINAL TRACT: Stomach is partially distended. No dilated small bowel loops. No colonic wall thickening or pericolonic inflammatory changes. Appendix appears unremarkable. No free air. ABDOMINAL WALL: No significant hernia is appreciated. LYMPH NODES: Normal. VASCULAR: Normal caliber aorta. PELVIC VISCERA: IUD present in the central aspect of the uterus. 4 cm left ovarian/adnexal cyst. Small free fluid in the pelvis. OSSEOUS STRUCTURES: No acute findings. No suspicious lytic or blastic lesions. CT/CT abdomen pelvis w con IMPRESSION: 1. No acute findings identified in the abdomen or pelvis. Cause for the patient's symptoms is not identified. 2. Left adnexal/ovarian 4 cm cyst. Follow-up 6-8 weeks ultrasound can be considered.
[2021-05-06 12:52] VITALS: BP 132/93; PULSE 74; RESP 16; TEMP 36.6; O2SAT 95; BMI 26.2
--- NOTE | 2021-05-06 13:51 | ED_ITS ---
HPI - Abdominal Pain General Chief Complaint: Abdominal Pain Stated Complaint: blood in stool Time Seen by Provider: 05/06/21 13:37 History of Present Illness HPI narrative: Patient 30-year-old female presents today with having abdominal pain. The abdominal pain is over the right side. Associated with nausea, diarrhea. Diarrhea is red in color. Patient has abdominal cramping. Has no pain on urination. No vomiting. The pain is been ongoing for 2-3 days. Patient does not think she is . She is status post cholecystectomy many years ago. History of cerebral palsy. History of migraine. Related Data Previous Rx's Medication Instructions Recorded omeprazole magnesium 20 mg 20 mg PO DAILY #14 tab 08/14/20 tablet,delayed release (Prilosec OTC) ondansetron HCl 4 mg tablet 4 mg PO Q8H PRN #10 tab 08/14/20 (Zofran) metronidazole 500 mg tablet 500 mg PO BID 7 Days #14 tab 08/17/20 (Flagyl) nitrofurantoin 100 mg PO BID 7 Days #14 cap 08/17/20 monohydrate/macrocrystals 100 mg capsule (Macrobid) Allergies Allergy/AdvReac Type Severity Reaction Status Date / Time acetaminophen [From TYLENOL] Allergy Unknown TOLD TO Verified 05/06/21 12:55 AVOID morphine [MORPHINE] Allergy Unknown HIVES Verified 05/06/21 12:55 Physical Exam Vital Signs: Vital Signs: Last Vital Signs Temp 98 F 05/06/21 12:52 Pulse 53 05/06/21 14:26 Resp 16 05/06/21 14:26 BP 133/78 05/06/21 14:26 Pulse Ox 99 05/06/21 14:26 Body Mass Index 26.2 MDM - Abdominal Pain MDM Narrative Medical decision making narrative: Patient is a 30-year-old female presented today with having abdominal pain on the right side. White count is normal electrolytes normal test is negative. CT scan of the abdomen was grossly negative for any acute evidence of appendicitis abscess perforation. Incidental finding of a left-sided ovarian cyst however patient did not have pain on that side. Hemoglobin is approximately stable at 13.8 baseline is 14. Rectal exam was offered but patient refused. Understood the risk of having rectal bleeding risk of hemorrhoid risk of colitis. Patient will follow-up outpatient. She is in stable condition. Differential Diagnosis Differential diagnosis: Likely abdominal pain Lab Data Result diagrams: 10/09/21 14:15 05/06/21 14:38 Labs: Lab Results 05/06/21 05/06/21 05/06/21 Range/Units 14:15 14:38 14:38 WBC 8.7 (4.8-10.8) X10*3/uL RBC 4.59 (4.20-5.50) X10*6/uL Hgb 13.9 (12.0-16.0) g/dl Hct 39.3 (37-47) % MCV 85.6 (80-98) fL MCH 30.3 (27.0-33.0) pg MCHC 35.4 H (31.0-35.0) g/dl RDW 12.4 (11.0-16.0) % Plt Count 321 (160-400) X10*3/uL MPV 9.8 (9.4-12.3) fL Immature Gran % (Auto) 0.2 (0.0-0.4) % Neut % (Auto) 55.7 (45-73) % Lymph % (Auto) 36.0 (20-40) % [place] % (Auto) 7.1 (2-11) % Eos % (Auto) 0.8 (0-4) % Baso % (Auto) 0.2 (0-2) % Lymph # (Auto) 3.2 (1.2-4.9) X10*3/uL [place] # (Auto) 0.6 (0.1-1.2) X10*3/uL Eos # (Auto) 0.1 (0.0-0.4) X10*3/uL Baso # (Auto) 0.0 (0.0-0.2) X10*3/uL Abs Immat Gran (auto) 0.02 (0.00-0.03) X10*3/uL Absolute Neuts (auto) 4.9 (2.0-8.3) X10*3/uL Absolute Nucleated RBC 0.000 (0.0-0.012) X10*3/uL Nucleated RBC % (auto) 0.0 (0.0-0.2) /100WBC Sodium 140 (135-145) mmol/L Potassium 3.9 (3.3-5.1) mmol/L Chloride 107 (96-108) mmol/L Carbon Dioxide 27 (22-29) mmol/L Anion Gap 10 L (12-20) BUN 8 L (9-16) mg/dL Creatinine 0.67 (0.5-1.4) mg/dL Estim Creat Clear Calc 97.7 Estimated GFR > 60 Random Glucose 108 (60-115) mg/dL Calcium 9.4 (8.4-10.2) mg/dL Total Bilirubin 0.7 (0.0-1.0) mg/dL AST 19 (5-31) U/L ALT 21 (0-31) U/L Alkaline Phosphatase 74 (39-117) U/L Total Protein 6.8 (6.5-8.0) g/dL Albumin 4.3 (3.5-5.0) g/dL Lipase 34 (8-78) U/L Beta HCG, Quant < 2 mIU/mL Urine Color YELLOW Urine Appearance HAZY Urine pH 8.0 (5.0-8.0) Ur Specific [place] 1.020 (1.005-1.025) Urine Protein NEG (NEG-TRACE) MG/DL Urine Glucose (UA) NEG (NEG) MG/DL Urine Ketones NEG (NEG) MG/DL Urine Blood NEG (NEG) Urine Nitrite NEG (NEG) Ur Leukocyte Esterase 2+ H (NEG) Urine RBC 0 (0) /HPF Urine WBC 5-9 H (0-4) /HPF Ur Squamous Epith Cells 2+ /LPF Amorphous Sediment 1+ /LPF Urine Bacteria 1+ /LPF Discharge Plan Discharge Clinical Impression: Abdominal pain, Rectal bleed Patient Disposition: Home, Self-Care Instructions: Abdominal Pain (ED), Rectal Bleeding (ED) Prescriptions: No Action ondansetron HCl [Zofran] 4 mg tablet 4 mg PO Q8H PRN (Reason: nausea and vomiting) Qty: 10 RF: 0 omeprazole magnesium [Prilosec OTC] 20 mg tablet,delayed release (DR/EC) 20 mg PO DAILY Qty: 14 RF: 0 nitrofurantoin monohyd/m-cryst [Macrobid] 100 mg capsule 100 mg PO BID 7 Days Qty: 14 RF: 0 metronidazole [Flagyl] 500 mg tablet 500 mg PO BID 7 Days Qty: 14 RF: 0 Referrals: Yoselyn Barnes MD [Primary Care Provider] - 2 days PMF Past Medical History Medical History Gallbladder & bile duct stone with obstruction Family History Family History Mother Breast cancer Diabetes Social History Social History Alcohol intake: never Patient Tobacco Use Status: Current someday Tobacco user Second Hand Smoke Exposure: No Use of substances other than those prescribed or required for medical reasons: No Substance Use Type: Marijuana Advance Directives: No Advance Directives Information Provided: Yes Patient : No Gender identity: Female
[2021-05-06 14:20] LABS: MANUAL DIFF FLAG NO
[2021-05-06 14:22] LABS: Basophils Percent Auto 0.2 % (0-2); Eosinophils Absolute Auto 0.1 X10*3/uL (0.0-0.4); Eosinophils Percent Auto 0.8 % (0-4); Hematocrit 39.3 % (37-47); Hemoglobin 13.9 g/dl (12.0-16.0); Imm Gran Abs Auto 0.02 X10*3/uL (0.00-0.03); Imm Gran Pct Auto 0.2 % (0.0-0.4); Lymphocytes Absolute Auto 3.2 X10*3/uL (1.2-4.9); Mean Corpuscular HGB Conc 35.4 g/dl (31.0-35.0); Mean Corpuscular Hemoglobin 30.3 pg (27.0-33.0); Mean Corpuscular Volume 85.6 fL (80-98); Mean Platelet Volume 9.8 fL (9.4-12.3); Monocytes Absolute Auto 0.6 X10*3/uL (0.1-1.2); Monocytes Percent Auto 7.1 % (2-11); Neutrophils Absolute Auto 4.9 X10*3/uL (2.0-8.3); Neutrophils Percent Auto 55.7 % (45-73); Platelet Count 321 X10*3/uL (160-400); Red Blood Count 4.59 X10*6/uL (4.20-5.50); Red Cell Distribution Width 12.4 % (11.0-16.0); White Blood Count 8.7 X10*3/uL (4.8-10.8)
[2021-05-06] MEDS: ondansetron HCL 4 MG/2 ML VIAL IVPUSH (14:23)
[2021-05-06] MEDS: 0.9 % Sodium Chloride 1,000 ML 999 ML IV (14:23)
[2021-05-06] MEDS: Ketorolac Tromethamine 15 MG/ML VIAL 30 MG IVPUSH (14:23)
[2021-05-06 14:26] VITALS: BP 133/78; PULSE 53; RESP 16; O2SAT 99
[2021-05-06 14:46] LABS: Appearance Urine HAZY; Color Urine YELLOW; Glucose Urine UA NEG (NEG); Leukocyte Esterase Urine 2+ (NEG); Nitrite Urine NEG (NEG); UACC Culture Trigger YES; Urine Blood NEG (NEG); Urine Ketones NEG (NEG); Urine Protein NEG (NEG-TRACE)
--- NOTE | 2021-05-06 14:47 | PC.NURSE ---
Pt reports rided abd pain with nausea and vomiting intermittently x 4 days. Pt denies any other sx. No acute vomiting at this time. Skin pink warm and dry. IV established and medicated as charted. S/O at bedside. Fluids infusing
[2021-05-06 14:57] LABS: Bacteria Urine 1+ /LPF; RBC Urine 0 /HPF (0); Squamous Epithelial Cell Urine 2+ /LPF
[2021-05-06 14:58] LABS: Amorphous Sediment Urine 1+ /LPF
[2021-05-06 15:02] LABS: Alanine Aminotransferase 21 U/L (0-31); Albumin Level 4.3 g/dL (3.5-5.0); Alkaline Phosphatase 74 U/L (39-117); Anion Gap 10 (12-20); Aspartate Amino Transferase 19 U/L (5-31); Bilirubin Total 0.7 mg/dL (0.0-1.0); Blood Urea Nitrogen 8 mg/dL (9-16); Calcium 9.4 mg/dL (8.4-10.2); Carbon Dioxide 27 mmol/L (22-29); Chloride 107 mmol/L (96-108); Creatinine Clr Calc Pharmacy 97.7; Estimated Glomerular Filt Rate > 60; Glucose Random 108 mg/dL (60-115); Lipase 34 U/L (8-78); Potassium 3.9 mmol/L (3.3-5.1); Sodium 140 mmol/L (135-145); Total Protein 6.8 g/dL (6.5-8.0)
[2021-05-06 15:13] LABS: HCG Quantitative < 2 mIU/mL
[2021-05-06] MEDS: iohexoL 350 MG/ML 100 ML INFUS..BTL IV (15:38)
[2021-05-06 17:28] VITALS: BP 100/74; PULSE 90; RESP 16; O2SAT 99
== END 2021-05-06 17:28 | disposition home or self-care (01) ==
PROVIDERS: Emergency Provider Emergency Medicine Emergency Medical Services; PCP Internal Medicine
DX: K62.5 Hemorrhage of anus and rectum (principal); R10.9 Unspecified abdominal pain; R11.0 Nausea; F12.90 Cannabis use, unspecified, uncomplicated; Z79.899 Other long term (current) drug therapy
CPT/HCPCS: 36415; 74177; 80053; 81001; 83690; 84702; 85025; 87086; 96361; 96374; 96375; 99284; 99285; J1885; J2405; Q9967

== ENCOUNTER 2021-12-23 02:06 | Emergency (ER) | payer OTHER, SELFPAY ==
[2021-12-23 02:21] VITALS: BP 135/80; BP 138/80; PULSE 105; RESP 18; TEMP 36.5; O2SAT 100; BMI 26.2
[2021-12-23 02:58] LABS: Monocytes Absolute Auto 0.4 X10*3/uL (0.1-1.2); Monocytes Percent Auto 3.5 % (2-11); Neutrophils Percent Auto 75.1 % (45-73); PLT CLUMP 1; Red Cell Distribution Width 12.4 % (11.0-16.0); SCAN SMEAR FLAG 1
[2021-12-23 03:00] LABS: Basophils Percent Auto 0.3 % (0-2); Eosinophils Percent Auto 0.2 % (0-4); Hemoglobin 14.2 g/dl (12.0-16.0); Imm Gran Abs Auto 0.04 X10*3/uL (0.00-0.03); Imm Gran Pct Auto 0.3 % (0.0-0.4); Lymphocytes Absolute Auto 2.6 X10*3/uL (1.2-4.9); Lymphocytes Percent Auto 20.6 % (20-40); Mean Corpuscular HGB Conc 33.8 g/dl (31.0-35.0); Mean Corpuscular Hemoglobin 29.8 pg (27.0-33.0); Mean Corpuscular Volume 88.1 fL (80.0-98.0); Mean Platelet Volume 10.5 fL (9.4-12.3); Neutrophils Absolute Auto 9.4 x10*3/uL (2.0-8.3); Red Blood Count 4.77 X10*6/uL (4.20-5.50)
[2021-12-23 03:05] LABS: MANUAL DIFF FLAG SCAN
[2021-12-23 03:06] LABS: Platelet Count 172 X10*3/uL (160-400); SLIDE REVIEW VERIFIED; White Blood Count 12.6 X10*3/uL (4.8-10.8)
[2021-12-23 03:10] LABS: Appearance Urine CLEAR; Color Urine YELLOW; Glucose Urine UA >=1000 MG/DL (NEG); Leukocyte Esterase Urine TRACE (NEG); Nitrite Urine NEG (NEG); Specific Gravity - Urine >= 1.030 (1.005-1.025); UACC Culture Trigger NO; Urine Blood TRACE (NEG); Urine Ketones NEG (NEG); Urine Protein NEG (NEG-TRACE)
[2021-12-23 03:11] LABS: UPreg QC Valid YES; Urine Pregnancy NEGATIVE (NEGATIVE)
[2021-12-23 03:19] LABS: Bacteria Urine 3+ /LPF; Mucus Urine 2+ /LPF; Squamous Epithelial Cell Urine 1+ /LPF
[2021-12-23 03:20] LABS: Alanine Aminotransferase 34 U/L (0-31); Albumin Level 4.1 g/dL (3.5-5.0); Alkaline Phosphatase 73 U/L (39-117); Anion Gap 15 (12-20); Aspartate Amino Transferase 23 U/L (5-31); Bilirubin Total 0.4 mg/dL (0.0-1.0); Blood Urea Nitrogen 12 mg/dL (9-16); COVID-19 Test Negative (Negative); Calcium 9.6 mg/dL (8.4-10.2); Carbon Dioxide 20 mmol/L (22-29); Chloride 109 mmol/L (96-108); Creatinine Clr Calc Pharmacy 76.2; Estimated Glomerular Filt Rate > 60; Glucose Random 233 mg/dL (60-115); IDNOW Serial# 16C4AD1C; Influenza A Negative (Negative); Influenza B2 Positive (Negative); Potassium 3.8 mmol/L (3.3-5.1); Sodium 140 mmol/L (135-145)
--- NOTE | 2021-12-23 07:48 | ED_ITS ---
HPI - Nausea/Vomiting/Diarrhea General Chief complaint: Nausea/Vomiting/Diarrhea Stated complaint: N/V Time Seen by Provider: 12/23/21 07:11 Source: patient Mode of arrival: ambulatory Limitations: no limitations History of Present Illness MD elicited complaint: nausea and abdominal pain (headaches, malaise, body aches, doesn't feel well) Onset (ago): day(s) (1) Associated nausea: Yes Associated abdominal pain: Yes Location of pain: diffuse Radiation: diffuse Pain consistency: intermittent Severity: mild Quality: cramping Exacerbating factors: eating Relieving factors: none Context: other (overall just doesn't feel well. ) Associated symptoms: myalgias, fever/chills, headaches, loss of appetite, malaise, nausea/vomiting, weakness and anxiety Related Data Previous Rx's Medication Instructions Recorded omeprazole magnesium 20 mg 20 mg PO DAILY #14 tab 08/14/20 tablet,delayed release (Prilosec OTC) ondansetron HCl 4 mg tablet 4 mg PO Q8H PRN #10 tab 08/14/20 (Zofran) metronidazole 500 mg tablet 500 mg PO BID 7 Days #14 tab 08/17/20 (Flagyl) nitrofurantoin 100 mg PO BID 7 Days #14 cap 08/17/20 monohydrate/macrocrystals 100 mg capsule (Macrobid) cefuroxime axetil 500 mg tablet 500 mg PO BID 7 Days #14 tab 12/23/21 ibuprofen 600 mg tablet 600 mg PO Q6H PRN #30 tab 12/23/21 ondansetron 4 mg disintegrating 4 mg PO Q8H PRN #20 tab 12/23/21 tablet oseltamivir 75 mg capsule (Tamiflu) 75 mg PO BID 5 Days #10 cap 12/23/21 Allergies Allergy/AdvReac Type Severity Reaction Status Date / Time acetaminophen [From TYLENOL] Allergy Unknown TOLD TO Verified 05/06/21 12:55 AVOID morphine [MORPHINE] Allergy Unknown HIVES Verified 05/06/21 12:55 Review of Systems Review of Systems: Constitutional : No Weight loss, pos Fever, pos Chills ENT/Mouth : No sore throat, No Rhinorrhea Eyes: No Swelling, No Redness Cardiovascular : No Chest Pain, No SOB, NoEdema Respiratory : No Cough, No Sputum, No Wheezing Gastrointestinal : Positive Nausea, no Vomiting, no Diarrhea, positive abdominal Pain, No Hematochezia, No Melena Genitourinary : No Dysuria, No Urinary Frequency, No Hematuria, No Urgency Musculoskeletal : No joint pain, pos Myalgias, No Joint Swelling Skin : No Skin Lesions, No rash Neuro : pos Weakness, No Numbness, No Dizziness, pos Headache Psych : No Anxiety/Panic, No Depression Heme/Lymph: No Bruising, No Lymphadenopathy Endocrine : No Polyuria, No Polydipsia All other systems reviewed and are negative. Gastrointestinal: Gastrointestinal: Reports nausea PMFSH Past Medical History Attestation statement: The following information was validated with the patient. Medical History (Updated 12/23/21 @ 08:22 by Deena Brumfield DO) Cerebral palsy Gallbladder & bile duct stone with obstruction Headache, migraine UTI (urinary tract infection) Family History Family History Mother Breast cancer Diabetes Social History Social History Alcohol intake: never Patient Tobacco Use Status: Current someday Tobacco user Second Hand Smoke Exposure: No Substance Use Type: Marijuana Advance Directives: No Gender identity: Female Physical Exam Vital Signs: Vital Signs: Last Vital Signs Temp 97.7 F 12/23/21 02:21 Pulse 105 H 12/23/21 02:21 Resp 18 12/23/21 02:21 BP 135/80 12/23/21 02:21 Pulse Ox 100 12/23/21 02:21 BMI result Body Mass Index 26.2 Appearance: Alert. Oriented X3. No acute distress. Anxious Eyes: Pupils equal, round and reactive to light. ENT: Pharynx normal. Neck: Normal inspection. Neck supple. CVS: Normal heart rate and rhythm. Pulses normal. Respiratory: No respiratory distress. Breath sounds normal. Abdomen: Soft and nontender. Skin: Skin warm and dry. Normal skin color. Normal skin turgor. Extremities: No lower extremity edema. No calf ttp Neuro: Oriented X 3. No motor deficit. No sensory deficit. Mild spasticity Course Course Course Narrative: refusing IV able to tolerate meds will start on ceftin stable for DC MDM - Nausea/Vomiting/Diarrhea MDM Narrative Medical decision making narrative: 31 yo female with hx of migraines, cerebral palsy, hypothyroidism comes in with c/o overall not feeling well x 1 day with nausea, body aches, headaches hot and cold, diffuse abdominal pain - not localized. She took no medications at home was very anxious. + for flu B she did not receive her vaccine this year. At this time will obtain basic labs, hydrate and provide supportive medications - dispo per results and findings. Lab Data Result diagrams: 12/23/21 02:52 12/23/21 02:52 Labs: Lab Results 12/23/21 12/23/21 12/23/21 Range/Units 02:52 02:52 02:52 WBC 12.6 H (4.8-10.8) X10*3/uL RBC 4.77 (4.20-5.50) X10*6/uL Hgb 14.2 (12.0-16.0) g/dl Hct 42.0 (37.0-47.0) % MCV 88.1 (80.0-98.0) fL MCH 29.8 (27.0-33.0) pg MCHC 33.8 (31.0-35.0) g/dl RDW 12.4 (11.0-16.0) % Plt Count 172 (160-400) X10*3/uL MPV 10.5 (9.4-12.3) fL Immature Gran % (Auto) 0.3 (0.0-0.4) % Neut % (Auto) 75.1 H (45-73) % Lymph % (Auto) 20.6 (20-40) % [place] % (Auto) 3.5 (2-11) % Eos % (Auto) 0.2 (0-4) % Baso % (Auto) 0.3 (0-2) % Lymph # (Auto) 2.6 (1.2-4.9) X10*3/uL [place] # (Auto) 0.4 (0.1-1.2) X10*3/uL Eos # (Auto) 0.0 (0.0-0.4) X10*3/uL Baso # (Auto) 0.0 (0.0-0.2) X10*3/uL Abs Immat Gran (auto) 0.04 H (0.00-0.03) X10*3/uL Absolute Neuts (auto) 9.4 H (2.0-8.3) x10*3/uL Absolute Nucleated RBC 0.000 (0.0-0.012) X10*3/uL Nucleated RBC % (auto) 0.0 (0.0-0.2) /100WBC Smear Tech's Comments VERIFIED Sodium 140 (135-145) mmol/L Potassium 3.8 (3.3-5.1) mmol/L Chloride 109 H (96-108) mmol/L Carbon Dioxide 20 L (22-29) mmol/L Anion Gap 15 (12-20) BUN 12 (9-16) mg/dL Creatinine 0.85 (0.5-1.4) mg/dL Estim Creat Clear Calc 76.2 Estimated GFR > 60 Random Glucose 233 H (60-115) mg/dL Calcium 9.6 (8.4-10.2) mg/dL Total Bilirubin 0.4 (0.0-1.0) mg/dL AST 23 (5-31) U/L ALT 34 H (0-31) U/L Alkaline Phosphatase 73 (39-117) U/L Total Protein 7.0 (6.5-8.0) g/dL Albumin 4.1 (3.5-5.0) g/dL Urine Color Urine Appearance Urine pH (5.0-8.0) Ur Specific [place] (1.005-1.025) Urine Protein (NEG-TRACE) MG/DL Urine Glucose (UA) (NEG) MG/DL Urine Ketones (NEG) MG/DL Urine Blood (NEG) Urine Nitrite (NEG) Ur Leukocyte Esterase (NEG) Urine RBC (0) /HPF Urine WBC (0-4) /HPF Ur Squamous Epith Cells /LPF Urine Bacteria /LPF Urine Mucus /LPF Urine Test (NEGATIVE) COVID-19 ([facility]) Negative (Negative) COVID-19 Clin Com See Note Influenza Type A ([place]) (Negative) Influenza Type B ([place]) (Negative) Influenza A & B Note 12/23/21 12/23/21 12/23/21 Range/Units 02:52 03:02 03:02 WBC (4.8-10.8) X10*3/uL RBC (4.20-5.50) X10*6/uL Hgb (12.0-16.0) g/dl Hct (37.0-47.0) % MCV (80.0-98.0) fL MCH (27.0-33.0) pg MCHC (31.0-35.0) g/dl RDW (11.0-16.0) % Plt Count (160-400) X10*3/uL MPV (9.4-12.3) fL Immature Gran % (Auto) (0.0-0.4) % Neut % (Auto) (45-73) % Lymph % (Auto) (20-40) % [place] % (Auto) (2-11) % Eos % (Auto) (0-4) % Baso % (Auto) (0-2) % Lymph # (Auto) (1.2-4.9) X10*3/uL [place] # (Auto) (0.1-1.2) X10*3/uL Eos # (Auto) (0.0-0.4) X10*3/uL Baso # (Auto) (0.0-0.2) X10*3/uL Abs Immat Gran (auto) (0.00-0.03) X10*3/uL Absolute Neuts (auto) (2.0-8.3) x10*3/uL Absolute Nucleated RBC (0.0-0.012) X10*3/uL Nucleated RBC % (auto) (0.0-0.2) /100WBC Smear Tech's Comments Sodium (135-145) mmol/L Potassium (3.3-5.1) mmol/L Chloride (96-108) mmol/L Carbon Dioxide (22-29) mmol/L Anion Gap (12-20) BUN (9-16) mg/dL Creatinine (0.5-1.4) mg/dL Estim Creat Clear Calc Estimated GFR Random Glucose (60-115) mg/dL Calcium (8.4-10.2) mg/dL Total Bilirubin (0.0-1.0) mg/dL AST (5-31) U/L ALT (0-31) U/L Alkaline Phosphatase (39-117) U/L Total Protein (6.5-8.0) g/dL Albumin (3.5-5.0) g/dL Urine Color YELLOW Urine Appearance CLEAR Urine pH 6.0 (5.0-8.0) Ur Specific [place] >= 1.030 H (1.005-1.025) Urine Protein NEG (NEG-TRACE) MG/DL Urine Glucose (UA) >=1000 H (NEG) MG/DL Urine Ketones NEG (NEG) MG/DL Urine Blood TRACE (NEG) Urine Nitrite NEG (NEG) Ur Leukocyte Esterase TRACE H (NEG) Urine RBC 1-4 (0) /HPF Urine WBC 10-14 H (0-4) /HPF Ur Squamous Epith Cells 1+ /LPF Urine Bacteria 3+ /LPF Urine Mucus 2+ /LPF Urine Test NEGATIVE (NEGATIVE) COVID-19 ([facility]) (Negative) COVID-19 Clin Com Influenza Type A ([place]) Negative (Negative) Influenza Type B ([place]) Positive A (Negative) Influenza A & B Note See Note Discharge Plan Discharge Clinical Impression: Influenza B UTI (urinary tract infection) Qualifiers: Urinary tract infection type: site unspecified Hematuria presence: without hematuria Qualified Code(s): N39.0 - Urinary tract infection, site not specified Patient Disposition: Home, Self-Care Instructions: Urinary Tract Infection in Women (ED), Influenza (ED) Additional Instructions: return to ED for any worsening symptoms or concerns motrin for fevers Prescriptions: New cefuroxime axetil 500 mg tablet 500 mg PO BID 7 Days Qty: 14 0RF ibuprofen 600 mg tablet 600 mg PO Q6H PRN (Reason: pain) Qty: 30 0RF ondansetron 4 mg tablet,disintegrating 4 mg PO Q8H PRN (Reason: nausea and vomiting) Qty: 20 0RF oseltamivir [Tamiflu] 75 mg capsule 75 mg PO BID 5 Days Qty: 10 0RF No Action ondansetron HCl [Zofran] 4 mg tablet 4 mg PO Q8H PRN (Reason: nausea and vomiting) Qty: 10 0RF omeprazole magnesium [Prilosec OTC] 20 mg tablet,delayed release (DR/EC) 20 mg PO DAILY Qty: 14 0RF nitrofurantoin monohyd/m-cryst [Macrobid] 100 mg capsule 100 mg PO BID 7 Days Qty: 14 0RF Rx Instructions: must administer with a meal/food metronidazole [Flagyl] 500 mg tablet 500 mg PO BID 7 Days Qty: 14 0RF Referrals: Physician,Unknown J [Primary Care Provider] - 5 days (if not better)
[2021-12-23] MEDS: Ondansetron ODT 4 MG TAB.RAPDIS TRANSLINGU (08:38)
[2021-12-23] MEDS: Ibuprofen 600 MG TABLET PO (08:39)
== END 2021-12-23 10:06 | disposition home or self-care (01) ==
PROVIDERS: Emergency Provider Emergency Medicine
DX: J10.1 Influenza due to other identified influenza virus with other respiratory manifestations (principal); N39.0 Urinary tract infection, site not specified; R11.2 Nausea with vomiting, unspecified; R51.9 Headache, unspecified; M79.10 Myalgia, unspecified site; Z20.822 Contact with and (suspected) exposure to COVID-19; Z79.899 Other long term (current) drug therapy
CPT/HCPCS: 80053; 81001; 81025; 85025; 87502; 87635; 96360; 96376; 99282; 99284

== ENCOUNTER 2022-01-02 12:24 | Outpatient (REF) | payer OTHER, SELFPAY ==
[2022-01-02 12:51] LABS: MANUAL DIFF FLAG NO
[2022-01-02 13:11] LABS: Basophils Percent Auto 0.2 % (0-2); Eosinophils Percent Auto 0.5 % (0-4); Hematocrit 40.4 % (37.0-47.0); Hemoglobin 13.5 g/dl (12.0-16.0); Imm Gran Abs Auto 0.01 X10*3/uL (0.00-0.03); Imm Gran Pct Auto 0.2 % (0.0-0.4); Lymphocytes Absolute Auto 2.9 X10*3/uL (1.2-4.9); Lymphocytes Percent Auto 48.1 % (20-40); Mean Corpuscular HGB Conc 33.4 g/dl (31.0-35.0); Mean Corpuscular Hemoglobin 28.8 pg (27.0-33.0); Mean Corpuscular Volume 86.1 fL (80.0-98.0); Mean Platelet Volume 9.8 fL (9.4-12.3); Monocytes Absolute Auto 0.4 X10*3/uL (0.1-1.2); Monocytes Percent Auto 7.4 % (2-11); Neutrophils Absolute Auto 2.6 x10*3/uL (2.0-8.3); Neutrophils Percent Auto 43.6 % (45-73); Platelet Count 317 X10*3/uL (160-400); Red Blood Count 4.69 X10*6/uL (4.20-5.50); Red Cell Distribution Width 12.3 % (11.0-16.0); White Blood Count 5.9 X10*3/uL (4.8-10.8)
[2022-01-02 13:34] LABS: Alanine Aminotransferase 34 U/L (0-31); Albumin Level 4.2 g/dL (3.5-5.0); Alkaline Phosphatase 76 U/L (39-117); Anion Gap 12 (12-20); Aspartate Amino Transferase 19 U/L (5-31); Bilirubin Total 0.3 mg/dL (0.0-1.0); Blood Urea Nitrogen 7 mg/dL (9-16); Calcium 9.7 mg/dL (8.4-10.2); Carbon Dioxide 24 mmol/L (22-29); Chloride 108 mmol/L (96-108); Cholesterol 242 mg/dL; Estimated Glomerular Filt Rate > 60; Glucose Random 101 mg/dL (60-115); HDL Cholesterol 42 mg/dL; LDL Cholesterol Calculated 170 mg/dl; Potassium 3.9 mmol/L (3.3-5.1); Sodium 140 mmol/L (135-145); Total Protein 6.9 g/dL (6.5-8.0); Triglycerides 150 mg/dL
[2022-01-02 13:53] LABS: Thyroid Stimulating Hormone 0.41 uIU/mL (0.32-4.0)
== END 2022-01-02 12:25 | disposition home or self-care (01) ==
LOC: HO.LAB 12:24
PROVIDERS: PCP Internal Medicine; Visit Provider Internal Medicine
DX: Z00.00 Encounter for general adult medical examination without abnormal findings (principal); F70 Mild intellectual disabilities; K21.9 Gastro-esophageal reflux disease without esophagitis; N32.81 Overactive bladder; Z86.001 Personal history of in-situ neoplasm of cervix uteri
CPT/HCPCS: 36415; 80053; 80061; 84443; 85025

== ENCOUNTER 2022-08-13 21:16 | Emergency (ER) | payer OTHER, SELFPAY ==
--- NOTE | ~2022-08-13 | CT_ITS ---
EXAMINATION: CT ABDOMEN AND PELVIS WITH CONTRAST CLINICAL INFORMATION: Lower abdominal pain. Right-sided flank pain. COMPARISON: CT abdomen and pelvis from 06/15/2021. TECHNIQUE: Multidetector volumetric imaging was performed through the abdomen and pelvis after the administration of 85 mL of Omnipaque 350 intravenous contrast. Sagittal and coronal reformatted images were obtained on the technologist's workstation. This CT examination was performed using dose optimization techniques as appropriate, variously including the following: *Automated exposure control. *Adjustment of mA and/or kV according to patient size (this includes techniques or standardized protocols for targeted exams where dose is matched to indication/reason for exam; i.e. extremities or head). *Use of iterative reconstruction technique. DLP: 409 mGy-cm. FINDINGS: Lower Chest: No diffuse or focal parenchymal abnormalities in the visualized lung bases. No demonstrated abnormalities of the visualized cardiac structures. Liver, Biliary Ducts, and Gallbladder: The liver is normal in size and attenuation without focal hepatic lesions or biliary ductal dilatation. Changes of prior cholecystectomy. Pancreas: The pancreas is normal in appearance. Adrenal Glands: The adrenal glands are normal in appearance. Spleen: The spleen is normal in appearance. Kidneys and Ureters: The kidneys demonstrate symmetric nephrograms without evidence of nephrolithiasis or hydronephrosis. No ureterolithiasis or hydroureter. Urinary Bladder: The urinary bladder is mildly distended. No bladder calculi are demonstrated. Gastrointestinal System: The stomach is decompressed and therefore not well evaluated on this exam. The small bowel is of normal caliber without regions of abnormal wall enhancement. The colon is normal in appearance without focal wall thickening or pericolonic inflammatory change. Normal appendix. Genitourinary: IUD in place. There is a 1.6 cm corpus luteal cyst associated with the right ovary. No demonstrated adnexal soft tissue masses. Intra-abdominal and Retroperitoneal Spaces: No intra-abdominal free fluid collections or gas. No mesenteric, retroperitoneal, or inguinal lymphadenopathy. Vasculature: The abdominal aorta is of normal contour and caliber. Musculoskeletal: Mild multilevel degenerative changes of the spine. No lytic or sclerotic osseous lesions demonstrated. No soft tissue masses demonstrated. CT/CT abdomen pelvis w IV con IMPRESSION: 1. No acute abnormalities of the abdomen/pelvis. 2. Changes of prior cholecystectomy. 3. Physiologic corpus luteal cyst associated with the right ovary. 4. No additional demonstrated CT abnormalities to explain the patient's symptoms.
[2022-08-13 21:49] VITALS: BP 155/88; PULSE 72; RESP 16; TEMP 36.8; O2SAT 98; BMI 26.2
[2022-08-13 22:20] LABS: Appearance Urine Turbid; Color Urine Yellow; Glucose Urine UA Negative (Negative); Leukocyte Esterase Urine Moderate (2+) (Negative); Nitrite Urine Negative (Negative); PH 8.5 (5.0-9.0); UMIC TRIGGER UACC YES; Urine Blood Negative (Negative); Urine Ketones Negative (Negative); Urine Protein Negative (Neg-Trace)
[2022-08-13 22:21] LABS: UPreg QC Valid YES; Urine Pregnancy NEGATIVE (NEGATIVE)
[2022-08-13 22:22] LABS: Bacteria Urine 2+ (None Seen); Hyaline Casts Urine 0-2 /LPF (0-2); UACC Culture Trigger YES
[2022-08-13 22:38] LABS: Anion Gap 13 (12-20); Blood Urea Nitrogen 11 mg/dL (9-16); Calcium 9.8 mg/dL (8.4-10.2); Carbon Dioxide 25 mmol/L (22-29); Chloride 106 mmol/L (96-108); Creatinine Clr Calc Pharmacy 106.3; Estimated Glomerular Filt Rate > 60; Glucose Random 102 mg/dL (60-115); Potassium 4.3 mmol/L (3.3-5.1); Sodium 140 mmol/L (135-145)
[2022-08-13 22:41] LABS: COVID-19 Test Negative (Negative); IDNOW Serial# 16C4AD1C
--- NOTE | 2022-08-13 23:47 | ED.ABDPAIN ---
HPI - Abdominal Pain General Chief Complaint: Abdominal Pain Stated Complaint: abd pain Time Seen by Provider: 08/13/22 23:33 Source: patient Mode of arrival: ambulatory Limitations: no limitations History of Present Illness HPI narrative: patient is a 31-year-old female who presents to the emergency department for evaluation of abdominal pain. She reports symptom onset to be yesterday. Initially with diffuse lower back pain. Today has diffuse lower abdominal pain. Reports associated nausea and vomiting. States she has vomited 5 times today. Is unable to tolerate oral fluids or solids without vomiting. reports constipation, last bowel movement with a few days ago. Denies fevers, chills, chest pain, shortness of breath, upper abdominal pain, dysuria, urinary frequency, hematuria, inability to urinate. Denies possibility of , does not recall date of last menstrual period Related Data Previous Rx's Medication Instructions Recorded omeprazole magnesium 20 mg 20 mg PO DAILY #14 tabs 08/14/20 tablet,delayed release (Prilosec OTC) ondansetron HCl 4 mg tablet 4 mg PO Q8H PRN nausea and 08/14/20 (Zofran) vomiting #10 tabs metronidazole 500 mg tablet 500 mg PO BID bacterial vaginosis 08/17/20 (Flagyl) 7 days #14 tabs nitrofurantoin 100 mg PO BID uti 7 days #14 caps 08/17/20 monohydrate/macrocrystals 100 mg capsule (Macrobid) cefuroxime axetil 500 mg tablet 500 mg PO BID 7 days #14 tabs 12/23/21 ibuprofen 600 mg tablet 600 mg PO Q6H PRN pain #30 tabs 12/23/21 ondansetron 4 mg disintegrating 4 mg PO Q8H PRN nausea and 12/23/21 tablet vomiting #20 tabs oseltamivir 75 mg capsule (Tamiflu) 75 mg PO BID 5 days #10 caps 12/23/21 cephalexin 500 mg capsule 500 mg PO BID #20 caps 08/14/22 Allergies Allergy/AdvReac Type Severity Reaction Status Date / Time acetaminophen [From TYLENOL] Allergy Unknown TOLD TO Verified 05/06/21 12:55 AVOID morphine [MORPHINE] Allergy Unknown HIVES Verified 05/06/21 12:55 Review of Systems Review of Systems Constitutional : No Weight loss, No Fever, No Chills ENT/Mouth :? No sore throat, No Rhinorrhea Eyes: No Swelling, No Redness Cardiovascular : No Chest Pain, No SOB, No Edema Respiratory : No Cough, No Sputum, No Wheezing Gastrointestinal : Positive Nausea, Positive Vomiting, no Diarrhea, positive abdominal pain, No Hematochezia, No Melena Genitourinary : No Dysuria, No Urinary Frequency, No Hematuria, No Urgency? Musculoskeletal : No joint pain, No Myalgias, No Joint Swelling Skin : No Skin Lesions, No rash Neuro : No Weakness, No Numbness, No Dizziness, No Headache Psych : No Anxiety/Panic, No Depression Heme/Lymph: No Bruising, No Lymphadenopathy Endocrine : No Polyuria, No Polydipsia Yes all other systems are reviewed and are negative [facility] Past Medical History Attestation statement: The following information was validated with the patient. Source: old records reviewed Medical History Cerebral palsy Gallbladder & bile duct stone with obstruction Headache, migraine UTI (urinary tract infection) Family History Family History Mother Breast cancer Diabetes Social History Social History Alcohol intake: current Alcohol intake frequency: holidays/special occasions only Alcohol type: wine Patient Tobacco Use Status: Current someday Tobacco user Smoked in Last 30 Days: No Second Hand Smoke Exposure: No Use of substances other than those prescribed or required for medical reasons: No Substance Use Type: Marijuana Advance Directives: No Patient : No Gender identity: Female Physical Exam ED Vital Signs: Vital Signs - 24 hr 08/13/22 21:49 08/14/22 00:45 Temperature 98.3 F 98.4 F Pulse Rate 72 88 Respiratory Rate 16 18 Blood Pressure 155/88 H Pulse Oximetry 98 98 Oxygen Delivery Method Room Air Room Air BMI result Body Mass Index 26.2 Appearance: Alert.?Oriented to person, place and time. No acute distress.?Normal affect. Eyes: Pupils equal, round and reactive to light.? ENT: Pharynx normal.?? Neck: Normal inspection.? Neck supple.?? CVS: Heart sounds normal. Normal heart rate and rhythm.? Pulses normal.?? Respiratory: No respiratory distress.? Lung sounds clear to auscultation bilaterally?? Abdomen: Soft With diffuse lower abdominal tenderness upon palpation. No rebound tenderness . No guarding. Normoactive bowel sounds. right CVA tenderness to palpation Skin: Skin warm and dry.? Normal skin color.? ?? Extremities: No lower extremity edema.? Neuro: Moves all extremities spontaneously. Sensation intact bilaterally. No focal neuro deficits. Ambulates with normal steady gait. Course Reevaluation(s) Reevaluation #1: CBC reveals No leukocytosis or anemia. BMP is unremarkable. Urinalysis positive for pyuria and urine bacteria, negative nitrates, negative urine , Ceftriaxone 1 g IV ordered to cover urinary tract infection. CT of the abdomen and pelvis reveals no acute intra-abdominal pathology, incidental finding of physiologic corpus luteal cyst of the right ovary. at this time symptoms likely secondary to urinary tract infection, concern for early pyelonephritis given back pain and associated nausea/ vomiting. She is tolerating oral intake at this time. Stable for discharge home, antibiotics sent to patient's pharmacy, reviewed worrisome signs and symptoms that would warrant re-evaluation in the emergency department. All questions answered. Ambulatory with steady gait. Time: 02:03 Medical Decision Making Medical Decision Making [facility] Narrative: patient is a 31-year-old male who presents to emergency department for evaluation of abdominal pain with nausea and vomiting, and concern for constipation. She is overall well-appearing. Nontoxic, afebrile without tachycardia. Abdominal examination diffuse lower abdominal tenderness upon palpation. No rigidity. No guarding.. Right CVA tenderness is present. Persistent nausea/ vomiting, and inability to tolerate oral intake. Will obtain CBC to evaluate for leukocytosis/ anemia, CMP and lipase to evaluate for abnormal electrolytes /abnormal renal function/ abnormal hepatic/biliary function, Urine test and Urinalysis. CT the abdomen and pelvis to evaluate for nephrolithiasis, hydronephrosis, pyelonephritis, constipation, bowel obstruction, appendicitis. patient received 1 L normal saline IV, ondansetron IV for nausea, Toradol IV for pain. Differential Diagnosis Differential Diagnoses: The differential diagnosis associated with the presentation includes ( as noted above) Lab Data [facility] Lab Attestation statement: I reviewed the patient's lab results. 08/13/22 22:05 Labs: Lab Results 08/13/22 08/13/22 08/13/22 Range/Units 22:05 22:05 22:05 WBC (4.8-10.8) X10*3/uL RBC (4.20-5.50) X10*6/uL Hgb (12.0-16.0) g/dl Hct (37.0-47.0) % MCV (80.0-98.0) fL MCH (27.0-33.0) pg MCHC (31.0-35.0) g/dl RDW (11.0-16.0) % Plt Count (160-400) X10*3/uL MPV (9.4-12.3) fL Immature Gran % (Auto) (0.0-0.4) % Neut % (Auto) (45-73) % Lymph % (Auto) (20-40) % [place] % (Auto) (2-11) % Eos % (Auto) (0-4) % Baso % (Auto) (0-2) % Lymph # (Auto) (1.2-4.9) X10*3/uL [place] # (Auto) (0.1-1.2) X10*3/uL Eos # (Auto) (0.0-0.4) X10*3/uL Baso # (Auto) (0.0-0.2) X10*3/uL Abs Immat Gran (auto) (0.00-0.03) X10*3/uL Absolute Neuts (auto) (2.0-8.3) x10*3/uL Absolute Nucleated RBC (0.0-0.012) X10*3/uL Nucleated RBC % (auto) (0.0-0.2) /100WBC Sodium 140 (135-145) mmol/L Potassium 4.3 (3.3-5.1) mmol/L Chloride 106 (96-108) mmol/L Carbon Dioxide 25 (22-29) mmol/L Anion Gap 13 (12-20) BUN 11 (9-16) mg/dL Creatinine 0.61 (0.5-1.4) mg/dL Estim Creat Clear Calc 106.3 Estimated GFR > 60 Random Glucose 102 (60-115) mg/dL Calcium 9.8 (8.4-10.2) mg/dL Lipase 49 (8-78) U/L Urine Color Yellow Urine Appearance Turbid Urine pH 8.5 (5.0-9.0) Ur Specific [place] 1.020 (1.005-1.025) Urine Protein Negative (Neg-Trace) mg/dL Urine Glucose (UA) Negative (Negative) mg/dL Urine Ketones Negative (Negative) mg/dL Urine Blood Negative (Negative) Urine Nitrite Negative (Negative) Ur Leukocyte Esterase Moderate (2+) H (Negative) Urine RBC 3-5 H (0-2) /HPF Urine WBC 11-20 H (0-5) /HPF Ur Squamous Epith Cells 6-10 (0-2) /HPF Urine Bacteria 2+ (None Seen) Hyaline Casts 0-2 (0-2) /LPF Urine Test (NEGATIVE) COVID-19 ([facility]) Negative (Negative) COVID-19 Clin Com See Note 08/13/22 08/14/22 Range/Units 22:05 00:17 WBC 9.6 (4.8-10.8) X10*3/uL RBC 4.65 (4.20-5.50) X10*6/uL Hgb 13.7 (12.0-16.0) g/dl Hct 39.6 (37.0-47.0) % MCV 85.2 (80.0-98.0) fL MCH 29.5 (27.0-33.0) pg MCHC 34.6 (31.0-35.0) g/dl RDW 12.4 (11.0-16.0) % Plt Count 346 (160-400) X10*3/uL MPV 9.6 (9.4-12.3) fL Immature Gran % (Auto) 0.3 (0.0-0.4) % Neut % (Auto) 48.3 (45-73) % Lymph % (Auto) 42.6 H (20-40) % [place] % (Auto) 7.0 (2-11) % Eos % (Auto) 1.3 (0-4) % Baso % (Auto) 0.5 (0-2) % Lymph # (Auto) 4.1 (1.2-4.9) X10*3/uL [place] # (Auto) 0.7 (0.1-1.2) X10*3/uL Eos # (Auto) 0.1 (0.0-0.4) X10*3/uL Baso # (Auto) 0.1 (0.0-0.2) X10*3/uL Abs Immat Gran (auto) 0.03 (0.00-0.03) X10*3/uL Absolute Neuts (auto) 4.6 (2.0-8.3) x10*3/uL Absolute Nucleated RBC 0.000 (0.0-0.012) X10*3/uL Nucleated RBC % (auto) 0.0 (0.0-0.2) /100WBC Sodium (135-145) mmol/L Potassium (3.3-5.1) mmol/L Chloride (96-108) mmol/L Carbon Dioxide (22-29) mmol/L Anion Gap (12-20) BUN (9-16) mg/dL Creatinine (0.5-1.4) mg/dL Estim Creat Clear Calc Estimated GFR Random Glucose (60-115) mg/dL Calcium (8.4-10.2) mg/dL Lipase (8-78) U/L Urine Color Urine Appearance Urine pH (5.0-9.0) Ur Specific [place] (1.005-1.025) Urine Protein (Neg-Trace) mg/dL Urine Glucose (UA) (Negative) mg/dL Urine Ketones (Negative) mg/dL Urine Blood (Negative) Urine Nitrite (Negative) Ur Leukocyte Esterase (Negative) Urine RBC (0-2) /HPF Urine WBC (0-5) /HPF Ur Squamous Epith Cells (0-2) /HPF Urine Bacteria (None Seen) Hyaline Casts (0-2) /LPF Urine Test NEGATIVE (NEGATIVE) COVID-19 ([facility]) (Negative) COVID-19 Clin Com Radiology Impression Discussion of test interpretation with radiology: I have reviewed the radiologist's reading. Radiologist Impression: CT/CT abdomen pelvis w IV con IMPRESSION: 1. No acute abnormalities of the abdomen/pelvis. 2. Changes of prior cholecystectomy. 3. Physiologic corpus luteal cyst associated with the right ovary. 4. No additional demonstrated CT abnormalities to explain the patient's symptoms. Prescription Management I considered prescription management with: Pain Medication ( NSAID) and Antibiotic Medications Administered Discontinued Medications Generic Name Dose Route Start Last Admin Trade Name Freq PRN Reason Stop Dose Admin Sodium Chloride 1,000 mls @ 999 mls/hr 08/13/22 23:45 08/14/22 00:09 Ns IV 08/14/22 00:45 999 mls/hr .Q1H1M JOSE ANTONIO Administration Ceftriaxone Sodium 1 gm/ 50 mls @ 100 mls/hr 08/13/22 23:44 08/14/22 00:52 Sodium Chloride IV 08/14/22 00:13 Infused ONCE ONE Infusion Iohexol 85 ml 08/14/22 00:44 08/14/22 00:44 Iohexol 350 Mg/Ml 100 Ml Infus..Btl IV 08/14/22 00:45 85 ml ONCE ONE Administration Ketorolac Tromethamine 30 mg 08/13/22 23:44 08/14/22 00:08 Ketorolac Tromethamine 30 Mg/Ml Vial IVPUSH 08/13/22 23:45 30 mg ONCE ONE Administration Ondansetron HCl 4 mg 08/13/22 23:44 08/14/22 00:09 Ondansetron Hcl 4 Mg/2 Ml Vial IVPUSH 08/13/22 23:45 4 mg ONCE ONE Administration Discharge Plan Discharge Clinical Impression: Urinary tract infection Patient Disposition: Home, Self-Care Instructions: Urinary Tract Infection in Women (ED) Additional Instructions: be sure to stay well hydrated, drink plenty of fluids, complete entire course of antibiotics as prescribed You can take ibuprofen 200 mg, 3 tablets (600mg) every 6-8 hours as needed for pain return back to emergency department any new or worsening symptoms or concerns. Prescriptions: New cephalexin 500 mg capsule 500 mg PO BID Qty: 20 0RF No Action ondansetron HCl [Zofran] 4 mg tablet 4 mg PO Q8H PRN (Reason: nausea and vomiting) Qty: 10 0RF omeprazole magnesium [Prilosec OTC] 20 mg tablet,delayed release (DR/EC) 20 mg PO DAILY Qty: 14 0RF nitrofurantoin monohyd/m-cryst [Macrobid] 100 mg capsule 100 mg PO BID 7 Days Qty: 14 0RF Rx Instructions: must administer with a meal/food metronidazole [Flagyl] 500 mg tablet 500 mg PO BID 7 Days Qty: 14 0RF cefuroxime axetil 500 mg tablet 500 mg PO BID 7 Days Qty: 14 0RF ibuprofen 600 mg tablet 600 mg PO Q6H PRN (Reason: pain) Qty: 30 0RF ondansetron 4 mg tablet,disintegrating 4 mg PO Q8H PRN (Reason: nausea and vomiting) Qty: 20 0RF oseltamivir [Tamiflu] 75 mg capsule 75 mg PO BID 5 Days Qty: 10 0RF Referrals: Yoselyn Barnes MD [Primary Care Provider] -
[2022-08-14] MEDS: Ketorolac Tromethamine 30 MG/ML VIAL IVPUSH (00:08)
--- NOTE | 2022-08-14 00:08 | PC.NURSE ---
PT A&Ox4, reports lower abd pain with N/V episode since yesterday. Reports last BM yesterday. +BS. Reports all over tender to touch. No episodes of vomiting. PT ambulating independently to BR. IV established, meds given as documented.
[2022-08-14] MEDS: ondansetron HCL 4 MG/2 ML VIAL IVPUSH (00:09)
[2022-08-14] MEDS: cefTRIAXone sodium 1 GM in 0.9 % Sodium Chloride 50 ML IV (00:09)
[2022-08-14] MEDS: 0.9 % Sodium Chloride 1,000 ML 999 ML IV (00:09)
[2022-08-14 00:12] LABS: Lipase 49 U/L (8-78)
[2022-08-14 00:23] LABS: MANUAL DIFF FLAG NO
[2022-08-14 00:24] LABS: Basophils Absolute Auto 0.1 X10*3/uL (0.0-0.2); Basophils Percent Auto 0.5 % (0-2); Eosinophils Absolute Auto 0.1 X10*3/uL (0.0-0.4); Eosinophils Percent Auto 1.3 % (0-4); Hematocrit 39.6 % (37.0-47.0); Hemoglobin 13.7 g/dl (12.0-16.0); Imm Gran Abs Auto 0.03 X10*3/uL (0.00-0.03); Imm Gran Pct Auto 0.3 % (0.0-0.4); Lymphocytes Absolute Auto 4.1 X10*3/uL (1.2-4.9); Lymphocytes Percent Auto 42.6 % (20-40); Mean Corpuscular HGB Conc 34.6 g/dl (31.0-35.0); Mean Corpuscular Hemoglobin 29.5 pg (27.0-33.0); Mean Corpuscular Volume 85.2 fL (80.0-98.0); Mean Platelet Volume 9.6 fL (9.4-12.3); Monocytes Absolute Auto 0.7 X10*3/uL (0.1-1.2); Neutrophils Absolute Auto 4.6 x10*3/uL (2.0-8.3); Neutrophils Percent Auto 48.3 % (45-73); Platelet Count 346 X10*3/uL (160-400); Red Blood Count 4.65 X10*6/uL (4.20-5.50); Red Cell Distribution Width 12.4 % (11.0-16.0); White Blood Count 9.6 X10*3/uL (4.8-10.8)
[2022-08-14] MEDS: iohexoL 350 MG/ML 100 ML INFUS..BTL 85 ML IV (00:44)
[2022-08-14 00:45] VITALS: PULSE 88; RESP 18; TEMP 36.9; O2SAT 98
[2022-08-14 02:00] VITALS: BP 121/76; PULSE 75; RESP 16; TEMP 36.4; O2SAT 96
== END 2022-08-14 02:28 | disposition home or self-care (01) ==
PROVIDERS: Nurse Practitioner Family; Emergency Provider Internal Medicine; PCP Internal Medicine
DX: N39.0 Urinary tract infection, site not specified (principal); M54.50 Low back pain, unspecified; R10.13 Epigastric pain; F17.200 Nicotine dependence, unspecified, uncomplicated; Z20.822 Contact with and (suspected) exposure to COVID-19; Z20.828 Contact with and (suspected) exposure to other viral communicable diseases; Z71.6 Tobacco abuse counseling; Z79.899 Other long term (current) drug therapy
CPT/HCPCS: 36415; 74177; 80048; 81001; 81025; 83690; 85025; 87086; 87635; 96361; 96365; 96375; 99285; J0696; J1885; J2405; Q9967

== ENCOUNTER 2022-10-08 06:59 | Emergency (ER) | payer OTHER, SELFPAY ==
--- NOTE | ~2022-10-08 | CT_ITS ---
EXAMINATION: CT ABDOMEN AND PELVIS WITHOUT CONTRAST CLINICAL INFORMATION: Abdominal pain. COMPARISON: CT abdomen/pelvis 08/14/2022. TECHNIQUE: Multidetector volumetric imaging was performed from the superior aspect of the liver through the pubic symphysis. Sagittal and coronal reformatted images were obtained on the technologist's workstation. This CT examination was performed using dose optimization techniques as appropriate, variously including the following: *Automated exposure control *Adjustment of mA and/or kV according to patient size (this includes techniques or standardized protocols for targeted exams where dose is matched to indication/reason for exam; i.e. extremities or head) *Use of iterative reconstruction technique DLP: 339 mGy-cm FINDINGS: LUNG BASES: No focal consolidation or pleural effusion. Stable nonspecific nodule in the inferior right breast measuring 0.5 cm (3:3), dating back to 08/14/2020. LIVER, GALLBLADDER, AND BILIARY TREE: Decreased attenuation of the liver parenchyma suggesting hepatic steatosis. Otherwise, the liver is normal in size and shape with no discrete focal lesion in this limited noncontrast examination. Cholecystectomy. No biliary ductal dilatation. PANCREAS: Limited noncontrast examination, unremarkable. SPLEEN: Limited noncontrast examination, unremarkable. ADRENAL GLANDS: No adrenal nodule. KIDNEYS AND URETERS: Limited noncontrast examination. No nephrolithiasis or hydronephrosis. No perinephric fat stranding. BLADDER: Decompressed and suboptimally assessed. GASTROINTESTINAL TRACT: The stomach is nondilated. There are prominent air and fluid filled loops of small bowel in the right and lower abdomen, for instance measuring 2.3 cm in diameter to on axial image 55 of series 3. No transition point or disproportionate dilatation to suspect a mechanical obstruction. There is fluid and air-fluid levels in the colon. Normal appendix. No pericolonic inflammatory changes. ABDOMINAL WALL: No significant hernia is appreciated. LYMPH NODES: No lymphadenopathy by CT short axis size criteria. VASCULAR: Limited noncontrast examination. The abdominal aorta is of normal diameter. PELVIC VISCERA: IUD centered in the endometrial cavity. The ovaries are symmetric in size. No inflammatory changes in the pelvis. Trace amount of free fluid, likely physiologic. OSSEOUS STRUCTURES: No acute or aggressive appearing osseous abnormalities. CT/CT abdomen pelvis wo IV con IMPRESSION: 1. Prominent fluid filled loops of small bowel with also fluid and air-fluid levels in the colon, suggestive of gastroenteritis and diarrhea. Nonobstructive bowel gas pattern. 2. Hepatic steatosis. 3. No other acute abdominal or pelvic abnormalities to explain the patient's symptoms.
[2022-10-08 07:02] VITALS: BP 134/87; PULSE 115; RESP 18; TEMP 36.6; O2SAT 98; BMI 26.2
[2022-10-08 07:48] LABS: Appearance Urine Turbid; Color Urine Yellow; Glucose Urine UA Negative (Negative); Leukocyte Esterase Urine Negative (Negative); Nitrite Urine Negative (Negative); Specific Gravity - Urine >= 1.030 (1.005-1.025); Urine Blood Negative (Negative); Urine Ketones Negative (Negative); Urine Protein Negative (Neg-Trace)
--- NOTE | 2022-10-08 07:48 | ED.ABDPAIN ---
HPI - Abdominal Pain General Chief Complaint: Abdominal Pain Stated Complaint: severe stomach pain Time Seen by Provider: 10/08/22 07:26 Source: patient Mode of arrival: ambulatory History of Present Illness HPI narrative: 32-year-old female, who has history of ovarian cysts, who presents with onset of diarrhea, nausea, vomiting on lower abdominal pain since yesterday, she reports dysuria, and denies any fevers or chills. LMP at end of last month Related Data Previous Rx's Medication Instructions Recorded omeprazole magnesium 20 mg 20 mg PO DAILY #14 tabs 08/14/20 tablet,delayed release (Prilosec OTC) ondansetron HCl 4 mg tablet 4 mg PO Q8H PRN nausea and 08/14/20 (Zofran) vomiting #10 tabs metronidazole 500 mg tablet 500 mg PO BID bacterial vaginosis 08/17/20 (Flagyl) 7 days #14 tabs nitrofurantoin 100 mg PO BID uti 7 days #14 caps 08/17/20 monohydrate/macrocrystals 100 mg capsule (Macrobid) cefuroxime axetil 500 mg tablet 500 mg PO BID 7 days #14 tabs 12/23/21 ibuprofen 600 mg tablet 600 mg PO Q6H PRN pain #30 tabs 12/23/21 ondansetron 4 mg disintegrating 4 mg PO Q8H PRN nausea and 12/23/21 tablet vomiting #20 tabs oseltamivir 75 mg capsule (Tamiflu) 75 mg PO BID 5 days #10 caps 12/23/21 cephalexin 500 mg capsule 500 mg PO BID #20 caps 08/14/22 ondansetron HCl 4 mg tablet 4 mg PO Q8H PRN nausea and 10/08/22 vomiting 4 days #10 tabs Allergies Allergy/AdvReac Type Severity Reaction Status Date / Time acetaminophen [From TYLENOL] Allergy Unknown TOLD TO Verified 10/08/22 07:10 AVOID morphine [MORPHINE] Allergy Unknown HIVES Verified 10/08/22 07:10 Review of Systems Review of Systems Pertinent positives and negatives as stated in HPI PMFSH Past Medical History Source: nursing notes reviewed Medical History Cerebral palsy Gallbladder & bile duct stone with obstruction Headache, migraine UTI (urinary tract infection) Family History Family History Mother Breast cancer Diabetes Social History Social History Alcohol intake: current Alcohol intake frequency: does not drink Alcohol type: wine Patient Tobacco Use Status: Current someday Tobacco user Smoked in Last 30 Days: No Second Hand Smoke Exposure: No Use of substances other than those prescribed or required for medical reasons: Yes Substance Use Type: Marijuana Substance Use Frequency: Occasionally Advance Directives: Yes Advance Directives Information Provided: Yes Advance Directives on File: No Gender identity: Female Physical Exam ED Vital Signs: Vital Signs - 24 hr 10/08/22 07:02 10/08/22 10:05 Temperature 97.8 F 99.2 F Pulse Rate 115 H 99 Respiratory Rate 18 18 Blood Pressure 134/87 140/80 H Pulse Oximetry 98 97 Oxygen Delivery Method Room Air Room Air BMI result Body Mass Index 26.2 VITAL SIGNS: Reviewed. GENERAL: Well developed, well nourished, in no acute distress. HEAD: Normocephalic/atraumatic EYES: PERRLA, EOMI LUNGS: Normal breath sounds. No adventitious sounds or accessory muscle use. SpO2<98> CARDIOVASCULAR: Regular rate and rhythm without noted murmurs ABDOMEN: Soft, diffusely tender, non-distended with bowel sounds. MUSCULOSKELETAL: No tenderness, deformities, or effusions noted on gross inspection. EXTREMITIES: No cyanosis, clubbing or edema. SKIN: Inspection of the skin reveals no rashes NEUROLOGIC: Alert and oriented x 4. Strength and sensation to light touch were grossly intact x 4, dystonia at baseline. Medical Decision Making Medical Decision Making [facility] Narrative: 0751: 32-year-old female with history and clinical presentation suggestive of possible appendicitis/renal colic/ectopic. Review of all investigations and my interpretation is patient has a viral gastroenteritis, specifically patient is testing positive for norovirus. 1253: P.o. challenge and then discharge. 1309: Patient is tolerating oral intake and will be discharged home with a prescription for Zofran. Differential Diagnosis Please see the discussion above Lab Data Please see the discussion above 10/08/22 07:47 10/08/22 08:09 Labs: Lab Results 10/08/22 10/08/22 10/08/22 Range/Units 07:40 07:40 07:47 WBC 8.1 (4.8-10.8) X10*3/uL RBC 4.83 (4.20-5.50) X10*6/uL Hgb 14.4 (12.0-16.0) g/dl Hct 41.2 (37.0-47.0) % MCV 85.3 (80.0-98.0) fL MCH 29.8 (27.0-33.0) pg MCHC 35.0 (31.0-35.0) g/dl RDW 12.8 (11.0-16.0) % Plt Count 319 (160-400) X10*3/uL MPV 10.0 (9.4-12.3) fL Immature Gran % (Auto) 0.5 H (0.0-0.4) % Neut % (Auto) 81.5 H (45-73) % Lymph % (Auto) 9.9 L (20-40) % [place] % (Auto) 7.7 (2-11) % Eos % (Auto) 0.2 (0-4) % Baso % (Auto) 0.2 (0-2) % Lymph # (Auto) 0.8 L (1.2-4.9) X10*3/uL [place] # (Auto) 0.6 (0.1-1.2) X10*3/uL Eos # (Auto) 0.0 (0.0-0.4) X10*3/uL Baso # (Auto) 0.0 (0.0-0.2) X10*3/uL Abs Immat Gran (auto) 0.04 H (0.00-0.03) X10*3/uL Absolute Neuts (auto) 6.6 (2.0-8.3) x10*3/uL Absolute Nucleated RBC 0.000 (0.0-0.012) X10*3/uL Nucleated RBC % (auto) 0.0 (0.0-0.2) /100WBC Sodium (135-145) mmol/L Potassium (3.3-5.1) mmol/L Chloride (96-108) mmol/L Carbon Dioxide (22-29) mmol/L Anion Gap (12-20) BUN (9-16) mg/dL Creatinine (0.5-1.4) mg/dL Estim Creat Clear Calc Estimated GFR Random Glucose (60-115) mg/dL Calcium (8.4-10.2) mg/dL Total Bilirubin (0.0-1.0) mg/dL AST (5-31) U/L ALT (0-31) U/L Alkaline Phosphatase (39-117) U/L Total Protein (6.5-8.0) g/dL Albumin (3.5-5.0) g/dL Beta HCG, Quant mIU/mL Urine Color Yellow Urine Appearance Turbid Urine pH 6.0 (5.0-9.0) Ur Specific [place] >= 1.030 H (1.005-1.025) Urine Protein Negative (Neg-Trace) mg/dL Urine Glucose (UA) Negative (Negative) mg/dL Urine Ketones Negative (Negative) mg/dL Urine Blood Negative (Negative) Urine Nitrite Negative (Negative) Ur Leukocyte Esterase Negative (Negative) Urine Test NEGATIVE (NEGATIVE) Stl C. cayetanensis PCR (Not Detect.) Stool Rotavirus A PCR (Not Detect.) Stl Adenov F 40/41 PCR (Not Detect.) Stool Astrovirus (PCR) (Not Detect.) Stool Campylobacter PCR (Not Detect.) Stool Cryptosporidium PCR (Not Detect.) Stl Sh Tox Pr E STEC PCR (Not Detect.) Stool E coli O157 PCR (Not Detect.) Stl Enterotoxigenic E PCR (Not Detect.) Stool EPEC (PCR) (Not Detect.) Stool EAEC (PCR) (Not Detect.) Stl E. histolytica PCR (Not Detect.) Stool Giardia Lamblia PCR (Not Detect.) Stl P. shigelloides PCR (Not Detect.) Stool Salmonella PCR (Not Detect.) Stool Sapovirus (PCR) (Not Detect.) Stl Shigella/EIEC PCR (Not Detect.) St Y.enterocolitica PCR (Not Detect.) Stool Vibrio (PCR) (Not Detect.) Stl Vibrio cholerae PCR (Not Detect.) Stl Norovirus GI/GII PCR (Not Detect.) 10/08/22 10/08/22 Range/Units 08:09 10:53 WBC (4.8-10.8) X10*3/uL RBC (4.20-5.50) X10*6/uL Hgb (12.0-16.0) g/dl Hct (37.0-47.0) % MCV (80.0-98.0) fL MCH (27.0-33.0) pg MCHC (31.0-35.0) g/dl RDW (11.0-16.0) % Plt Count (160-400) X10*3/uL MPV (9.4-12.3) fL Immature Gran % (Auto) (0.0-0.4) % Neut % (Auto) (45-73) % Lymph % (Auto) (20-40) % [place] % (Auto) (2-11) % Eos % (Auto) (0-4) % Baso % (Auto) (0-2) % Lymph # (Auto) (1.2-4.9) X10*3/uL [place] # (Auto) (0.1-1.2) X10*3/uL Eos # (Auto) (0.0-0.4) X10*3/uL Baso # (Auto) (0.0-0.2) X10*3/uL Abs Immat Gran (auto) (0.00-0.03) X10*3/uL Absolute Neuts (auto) (2.0-8.3) x10*3/uL Absolute Nucleated RBC (0.0-0.012) X10*3/uL Nucleated RBC % (auto) (0.0-0.2) /100WBC Sodium 141 (135-145) mmol/L Potassium 3.8 (3.3-5.1) mmol/L Chloride 107 (96-108) mmol/L Carbon Dioxide 20 L (22-29) mmol/L Anion Gap 18 (12-20) BUN 10 (9-16) mg/dL Creatinine 0.69 (0.5-1.4) mg/dL Estim Creat Clear Calc 93.2 Estimated GFR > 60 Random Glucose 118 H (60-115) mg/dL Calcium 9.7 (8.4-10.2) mg/dL Total Bilirubin 0.9 (0.0-1.0) mg/dL AST 24 (5-31) U/L ALT 45 H (0-31) U/L Alkaline Phosphatase 80 (39-117) U/L Total Protein 6.9 (6.5-8.0) g/dL Albumin 4.4 (3.5-5.0) g/dL Beta HCG, Quant < 2 mIU/mL Urine Color Urine Appearance Urine pH (5.0-9.0) Ur Specific [place] (1.005-1.025) Urine Protein (Neg-Trace) mg/dL Urine Glucose (UA) (Negative) mg/dL Urine Ketones (Negative) mg/dL Urine Blood (Negative) Urine Nitrite (Negative) Ur Leukocyte Esterase (Negative) Urine Test (NEGATIVE) Stl C. cayetanensis PCR Not Detected (Not Detect.) Stool Rotavirus A PCR Not Detected (Not Detect.) Stl Adenov F 40/41 PCR Not Detected (Not Detect.) Stool Astrovirus (PCR) Not Detected (Not Detect.) Stool Campylobacter PCR Not Detected (Not Detect.) Stool Cryptosporidium PCR Not Detected (Not Detect.) Stl Sh Tox Pr E STEC PCR Not Detected (Not Detect.) Stool E coli O157 PCR Not applicable (Not Detect.) Stl Enterotoxigenic E PCR Not Detected (Not Detect.) Stool EPEC (PCR) Not Detected (Not Detect.) Stool EAEC (PCR) Not Detected (Not Detect.) Stl E. histolytica PCR Not Detected (Not Detect.) Stool Giardia Lamblia PCR Not Detected (Not Detect.) Stl P. shigelloides PCR Not Detected (Not Detect.) Stool Salmonella PCR Not Detected (Not Detect.) Stool Sapovirus (PCR) Not Detected (Not Detect.) Stl Shigella/EIEC PCR Not Detected (Not Detect.) St Y.enterocolitica PCR Not Detected (Not Detect.) Stool Vibrio (PCR) Not Detected (Not Detect.) Stl Vibrio cholerae PCR Not Detected (Not Detect.) Stl Norovirus GI/GII PCR Detected A (Not Detect.) Radiology Impression Radiologist Impression: My interpretation is in agreement with radiology's impression of the imaging studies. External Record Review External record reviewed: Prior outpatient labs Medications Administered Discontinued Medications Generic Name Dose Route Start Last Admin Trade Name Freq PRN Reason Stop Dose Admin Dicyclomine HCl 10 mg 10/08/22 11:17 10/08/22 11:33 Dicyclomine Hcl 10 Mg Capsule PO 10/08/22 11:18 10 mg ONCE ONE Administration Sodium Chloride 1,000 mls @ 999 mls/hr 10/08/22 08:00 10/08/22 08:19 Ns IV 10/08/22 09:00 999 mls/hr .Q1H1M JOSE ANTONIO Administration Ondansetron HCl 4 mg 10/08/22 10:25 10/08/22 11:34 Ondansetron Hcl 4 Mg/2 Ml Vial IVPUSH 10/08/22 10:26 4 mg ONCE ONE Administration Discharge Plan Discharge Clinical Impression: Norovirus, Gastroenteritis, Dehydration Patient Disposition: Home, Self-Care Instructions: Dehydration (ED), Gastroenteritis (ED), Nutrition Tips for Relief of Diarrhea (ED) Additional Instructions: 1. Your receiving a prescription for antinausea medication and should continue with this as well as drinking plenty of water. 2. Please review the recommendations for helping with your diarrhea but it will take time. 3. Please follow-up with your primary care provider in the next 1-2 days for re-evaluation further outpatient management. Return to the ER for any worsening symptoms. Prescriptions: New ondansetron HCl 4 mg tablet 4 mg PO Q8H PRN (Reason: nausea and vomiting) 4 Days Qty: 10 0RF No Action ondansetron HCl [Zofran] 4 mg tablet 4 mg PO Q8H PRN (Reason: nausea and vomiting) Qty: 10 0RF omeprazole magnesium [Prilosec OTC] 20 mg tablet,delayed release (DR/EC) 20 mg PO DAILY Qty: 14 0RF nitrofurantoin monohyd/m-cryst [Macrobid] 100 mg capsule 100 mg PO BID 7 Days Qty: 14 0RF Rx Instructions: must administer with a meal/food metronidazole [Flagyl] 500 mg tablet 500 mg PO BID 7 Days Qty: 14 0RF cefuroxime axetil 500 mg tablet 500 mg PO BID 7 Days Qty: 14 0RF ibuprofen 600 mg tablet 600 mg PO Q6H PRN (Reason: pain) Qty: 30 0RF ondansetron 4 mg tablet,disintegrating 4 mg PO Q8H PRN (Reason: nausea and vomiting) Qty: 20 0RF oseltamivir [Tamiflu] 75 mg capsule 75 mg PO BID 5 Days Qty: 10 0RF cephalexin 500 mg capsule 500 mg PO BID Qty: 20 0RF Referrals: Yoselyn Barnes MD [Primary Care Provider] -
[2022-10-08 07:53] LABS: MANUAL DIFF FLAG NO
[2022-10-08 08:01] LABS: UPreg QC Valid YES; Urine Pregnancy NEGATIVE (NEGATIVE)
[2022-10-08 08:07] LABS: Basophils Percent Auto 0.2 % (0-2); Eosinophils Percent Auto 0.2 % (0-4); Hematocrit 41.2 % (37.0-47.0); Hemoglobin 14.4 g/dl (12.0-16.0); Imm Gran Abs Auto 0.04 X10*3/uL (0.00-0.03); Imm Gran Pct Auto 0.5 % (0.0-0.4); Lymphocytes Absolute Auto 0.8 X10*3/uL (1.2-4.9); Lymphocytes Percent Auto 9.9 % (20-40); Mean Corpuscular Hemoglobin 29.8 pg (27.0-33.0); Mean Corpuscular Volume 85.3 fL (80.0-98.0); Monocytes Absolute Auto 0.6 X10*3/uL (0.1-1.2); Monocytes Percent Auto 7.7 % (2-11); Neutrophils Absolute Auto 6.6 x10*3/uL (2.0-8.3); Neutrophils Percent Auto 81.5 % (45-73); Platelet Count 319 X10*3/uL (160-400); Red Blood Count 4.83 X10*6/uL (4.20-5.50); Red Cell Distribution Width 12.8 % (11.0-16.0); White Blood Count 8.1 X10*3/uL (4.8-10.8)
[2022-10-08] MEDS: 0.9 % Sodium Chloride 1,000 ML 999 ML IV (08:19)
[2022-10-08 08:40] LABS: Alanine Aminotransferase 45 U/L (0-31); Albumin Level 4.4 g/dL (3.5-5.0); Alkaline Phosphatase 80 U/L (39-117); Anion Gap 18 (12-20); Aspartate Amino Transferase 24 U/L (5-31); Bilirubin Total 0.9 mg/dL (0.0-1.0); Blood Urea Nitrogen 10 mg/dL (9-16); Calcium 9.7 mg/dL (8.4-10.2); Carbon Dioxide 20 mmol/L (22-29); Chloride 107 mmol/L (96-108); Creatinine Clr Calc Pharmacy 93.2; Estimated Glomerular Filt Rate > 60; Glucose Random 118 mg/dL (60-115); HCG Quantitative < 2 mIU/mL; Potassium 3.8 mmol/L (3.3-5.1); Sodium 141 mmol/L (135-145); Total Protein 6.9 g/dL (6.5-8.0)
[2022-10-08 10:05] VITALS: BP 140/80; PULSE 99; RESP 18; TEMP 37.3; O2SAT 97
[2022-10-08] MEDS: Dicyclomine HCl 10 MG CAPSULE PO (11:33)
[2022-10-08] MEDS: ondansetron HCL 4 MG/2 ML VIAL IVPUSH (11:34)
[2022-10-08 12:46] LABS: Campylobacter Not Detected (Not Detect.); Plesiomonas shigelloides Not Detected (Not Detect.); Salmonella Not Detected (Not Detect.)
[2022-10-08 12:47] LABS: Adenovirus F 40/41 Not Detected (Not Detect.); Astrovirus Not Detected (Not Detect.); Cryptosporidium Not Detected (Not Detect.); Cyclospora cayetanensis Not Detected (Not Detect.); E. coli EAEC Not Detected (Not Detect.); E. coli EPEC Not Detected (Not Detect.); E. coli ETEC Not Detected (Not Detect.); E. coli STEC Not Detected (Not Detect.); Entamoeba histolytica Not Detected (Not Detect.); Giardia lamblia Not Detected (Not Detect.); Rotavirus A Not Detected (Not Detect.); Sapovirus Not Detected (Not Detect.); Shigella sp./EIEC Not Detected (Not Detect.); Vibrio Not Detected (Not Detect.); Vibrio Cholerae Not Detected (Not Detect.); Yersinia enterocolitica Not Detected (Not Detect.)
[2022-10-08 12:50] LABS: Norovirus GI/GII Detected (Not Detect.)
== END 2022-10-08 13:33 | disposition home or self-care (01) ==
PROVIDERS: Emergency Provider Student in an Organized Health Care Education/Training Program; PCP Internal Medicine
DX: A08.11 Acute gastroenteropathy due to Norwalk agent (principal); K52.9 Noninfective gastroenteritis and colitis, unspecified; E86.0 Dehydration; R30.0 Dysuria; Z20.822 Contact with and (suspected) exposure to COVID-19; Z20.828 Contact with and (suspected) exposure to other viral communicable diseases; Z79.899 Other long term (current) drug therapy
CPT/HCPCS: 36415; 74176; 80053; 81003; 81025; 84702; 85025; 87507; 96361; 96374; 99284; 99285; J2405

== ENCOUNTER 2023-03-05 22:17 | Emergency (ER) | payer OTHER, SELFPAY ==
--- NOTE | ~2023-03-05 | CT_ITS ---
EXAMINATION: CT CERVICAL SPINE WITHOUT CONTRAST CLINICAL INFORMATION: Trauma. COMPARISON: None available. TECHNIQUE: Contiguous axial noncontrast CT scan images of the cervical spine obtained. This CT examination was performed using dose optimization techniques as appropriate, variously including the following: *Automated exposure control *Adjustment of mA and/or kV according to patient size (this includes techniques or standardized protocols for targeted exams where dose is matched to indication/reason for exam; i.e. extremities or head) *Use of iterative reconstruction technique DLP: 389 mGy-cm FINDINGS: There is mild reversal of the expected cervical spine curvature. The alignment is otherwise within normal limits. Disc spaces are maintained. The bone mineralization is normal. The vertebral body heights are maintained. Prevertebral soft tissues are unremarkable. The upper lung henderson are unremarkable. CT/CT cervical spine wo IV con IMPRESSION: 1. Mild reversal of the expected cervical spine curvature of uncertain significance. 2. No evidence for fracture. Fleischner guidelines were followed.
[2023-03-05 22:25] VITALS: BP 168/94; PULSE 94; O2SAT 97
[2023-03-05 22:27] VITALS: BP 131/96; PULSE 80; RESP 18; TEMP 37.2; O2SAT 96; BMI 29.3
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
== END 2023-03-06 01:04 | disposition home or self-care (01) ==
PROVIDERS: Emergency Provider Emergency Medicine; PCP Internal Medicine
DX: S13.4XXA Sprain of ligaments of cervical spine, initial encounter (principal); M54.2 Cervicalgia; V43.52XA Car driver injured in collision with other type car in traffic accident, initial encounter; Y93.9 Activity, unspecified; Y92.410 Unspecified street and highway as the place of occurrence of the external cause; Y99.9 Unspecified external cause status
CPT/HCPCS: 72125; 99284

== ENCOUNTER 2023-06-05 09:55 | Outpatient (REF) | payer OTHER, SELFPAY ==
[2023-06-06 06:12] LABS: CT PCR NOT DETECTED (Not Detect.); NG PCR NOT DETECTED (Not Detect.)
[2023-06-06 12:54] LABS: BV Int Neg Control Negative (Negative); BV Int Pos Control Positive (Positive)
[2023-06-08 07:49] LABS: HPV mRNA E6/E7 rflx Not Detected (Not Detected)
== END 2023-06-05 09:56 | disposition home or self-care (01) ==
LOC: HO.LNP 09:55
PROVIDERS: PCP Internal Medicine; Visit Provider Advanced Practice Midwife
DX: Z01.419 Encounter for gynecological examination (general) (routine) without abnormal findings (principal); G24.9 Dystonia, unspecified; Z11.3 Encounter for screening for infections with a predominantly sexual mode of transmission; Z87.42 Personal history of other diseases of the female genital tract; Z79.899 Other long term (current) drug therapy
CPT/HCPCS: 0353U; 87480; 87510; 87624; 87660; 88142; 99385

== ENCOUNTER 2023-06-05 09:55 | Outpatient (AMB) | payer OTHER, SELFPAY ==
[2023-06-05 10:00] VITALS: BP 120/60; BMI 23.6
--- NOTE | 2023-06-05 10:00 | A.OFFVIS_ITS ---
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 Consultant Required: No Information Interpreted: non-clinical & clinical Personalized Living Manager: Personalized Living Manager Present (Aidyn) Allergies acetaminophen [From TYLENOL] Allergy (Unknown, Verified 06/05/23 10:03) TOLD TO AVOID morphine [MORPHINE] Allergy (Unknown, Verified 06/05/23 10:03) HIVES Medication List - Last Reconciled 06/05/23 by Beba Scruggs CNM ibuprofen 600 mg PO Q6H PRN levonorgestrel (Mirena) intrauterine oxybutynin chloride ER 10 mg PO DAILY sertraline 50 mg PO DAILY Is last menstrual period known: Yes Last menstrual period: 05/27/23 Post menopausal: No HPI 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 She has a history of abnormal Paps in the past but her last 1 was normal. She says she has the ParaGard 10 year IUD that was inserted she thinks a few years ago. She had the Mirena 1st after of her daughter but then she switched it out because she was concerned about side effects to her liver. She had had some elevated liver enzymes at the time. She has 1 10-year-old daughter and she does not want to have anymore children and she would like to have her tubes tied she is so nervous about getting that she also uses condoms every time she has sex as a cyst double precaution. She also is using them to protect from STIs she does have a partner for of about 6 months but she would like full checking for STIs including blood work. She is very careful about her health and does not even take ibuprofen if she has pain she sometimes does have pain with her periods and sometimes pain on her left side.. She sees Dr. Leon for her primary care. She does have what she thinks is cerebral palsy and states that she was awaiting more tests at [facility] but everything got delayed with COVID and she keeps waiting and lots of appointments have been canceled on her. She lives with her mother and daughter. She is able to drive and states that when she is driving she has less uncontrolled movements, she is very careful. she does have her partner/boyfriend, and her partner's been exercising with her and she has been doing weightlifting for strength. [facility] Medical History (Updated 06/05/23 @ 11:02 by Beba Scruggs CNM) Cerebral palsy Depression UTI (urinary tract infection) Headache, migraine Gallbladder & bile duct stone with obstruction Surgical History (Updated 06/05/23 @ 10:06 by ARIEL Cuevas) Hx of cholecystectomy Family History (Updated 06/05/23 @ 10:08 by ARIEL Cuevas) Mother Breast cancer Diabetes Maternal Grandmother Lung cancer Paternal Grandfather Colon cancer Social History Alcohol intake: current Alcohol intake frequency: holidays/special occasions only Alcohol type: wine Patient Tobacco Use Status: Current someday Tobacco user Second Hand Smoke Exposure: No Substance Use Type: Marijuana Gender identity: Female Female Reproductive History Menstrual Age of Menarche: 11 Duration of menses: 3-5 days Date of last menstrual period: 05/27/23 control method: progestin IUCD Total pregnancies: 1 Full term: 1 Number of Living Children: 1 Date of last pap smear: 07/01/20 (negative) History of abnormal pap smear: Yes (2017 2015 CIN1, 2016 ASC-H, 2013 ASCUS) Physical Exam Vital Signs: Last Vital Signs BP 120/60 06/05/23 10:00 BMI result Body Mass Index 23.6 Const General: healthy appearing, comfortable, no acute distress, well developed and alert Nutritional Appearance: average body habitus Orientation/consciousness: patient oriented x3 Limitations: no limitations and physical limitations (Has frequent random movements consistent with her cerebral palsy) HEENT Head: Yes normocephalic Neck Neck: Yes normal visual inspection Thyroid: Thyroid normal Chest Chest palpation & inspection: normal inspection of the chest Breast/axilla inspection: normal inspection of the breasts and normal inspection of the axillae Breast/axilla palpation: normal palpation of the breasts and normal palpation of the axillae Resp Effort & Inspection: normal respiratory effort GI Inspection: Yes normal to inspection, No Abdominal wall edema and No distended Palpation (GI): Soft to palpation and nontender Other: Normal external exam vagina pink and moist and healthy appearing normal clear scant mucus cervix multiparous with ParaGard strings easily visible good tone with Kegel General: Yes bladder normal to palpation External Female Exam: normal external appearance and normal appearance of the urethra Speculum Exam - Vagina: normal appearance of the vagina, normal palpation and normal vaginal discharge Speculum Exam - Cervix: normal appearance of the cervix, normal palpation and nontender Bimanual exam- vagina & uterus: normal bimanual exam, normal palpation, uterine size normal, bladder normal to palpation, consistency normal, normal palpation, uterine mobility normal, uterine shape normal, No Cervical tenderness present, non-tender and no cervical motion tenderness Bimanual Exam- Adnexa, other: normal adnexae, no masses, normal and No adnexal tenderness Neuro General: patient oriented x3 Assessment & Plan Assessment & Plan (1) Dystonia: Code(s): G24.9 - Dystonia, unspecified (2) History of abnormal cervical Pap smear: Comment: History of MARCELA 1 in past see history for details. Pap done 06/05/2023. Code(s): Z87.42 - Personal history of other diseases of the female genital tract (3) Well woman exam with routine gynecological exam: Code(s): Z01.419 - Encounter for gynecological examination (general) (routine) without abnormal findings (4) Cerebral palsy: Code(s): G80.9 - Cerebral palsy, unspecified (5) Screen for sexually transmitted diseases: Code(s): Z11.3 - Encounter for screening for infections with a predominantly sexual mode of transmission (6) Encounter for routine checking of intrauterine contraceptive device (IUD): Comment: Has ParaGard IUD, that replaced a Mirena Code(s): Z30.431 - Encounter for routine checking of intrauterine contraceptive device (7) control counseling: Comment: Desires tubal ligation for permanent control. To leave ParaGard in until surgery is done. next visit for consultation Code(s): Z30.09 - Encounter for other general counseling and advice on contraception Plan -----Discussed in this visit the following: healthy balanced diet, regular and consistent exercise, getting recommended health screens, doing the best she can for her particular health concerns, kegel exercises, pap smear screening and followup recommendations, mammography screening and SBE, normal changes in cycles in her life stage--- . Applauded her careful concern about her health and using condoms for STI protection as well as a double protection against an unplanned despite presence of the ParaGard IUD she very much wants to have tubal ligation surgery for permanent control she is very clear that she does not want to have anymore children and that if her cerebral palsy got any worse with she could end up in a wheelchair in she wants to avoid that she is doing her best to keep herself healthy many years ago she had some liver enzyme issues and that is why she switched from the Mirena to the ParaGard IUD and she is careful about medications and does not take anything at all she lives with her mother and daughter. She is able to drive herself and she is very careful. Discussed that she should leave the ParaGard in until the day of surgery when it could be removed under anesthesia. She was very nervous about the exam but she did very well. There was some bleeding with the Pap smear which is common in normal the ParaGard IUD strings were easily visible and she had very normal appearing vagina and white discharge. She wants full testing for STIs and they were ordered and she can do them whenever she wants to go to the lab. Her primary is Dr. Leon who takes care of her most of her healthcare needs. Orders: Orders Hepatitis B Surface Antigen Today G80.9 - Cerebral palsy, unspecified, Z11.3 - Encounter for screening for infections with a predominantly sexual mode of t ransmission Hepatitis C Antibody Today G80.9 - Cerebral palsy, unspecified, Z11.3 - Encounter for screening for infections with a predominantly sexual mode of transmission HIV Ab/Ag Today G80.9 - Cerebral palsy, unspecified, Z11.3 - Encounter for screening for infections with a predominantly sexual mode of transmission Syphilis Screen Today G80.9 - Cerebral palsy, unspecified, Z11.3 - Encounter for screening for infections with a predominantly sexual mode of transmission Coding Level of Care Code New Pt Prev Care 18-39yr(55262 Diagnoses Dystonia G24.9 History of abnormal cervical Pap smear Z87.42 Well woman exam with routine gynecological exam Z01.419 Cerebral palsy G80.9 Screen for sexually transmitted diseases Z11.3 Encounter for routine checking of intrauterine contraceptive device (IUD) Z30.431 control counseling Z30.09
== END 2023-06-05 10:55 | disposition home or self-care (01) ==
LOC: HO.HWS 09:55
PROVIDERS: PCP Internal Medicine; Visit Provider Advanced Practice Midwife
DX: Z01.419 Encounter for gynecological examination (general) (routine) without abnormal findings (principal); G24.9 Dystonia, unspecified; G80.9 Cerebral palsy, unspecified; Z87.42 Personal history of other diseases of the female genital tract
CPT/HCPCS: 99385

== ENCOUNTER 2023-07-18 17:12 | Emergency (ER) | payer OTHER, SELFPAY ==
--- OUTSIDE RECORDS SUMMARY | 2023-07-18 20:22 | XMS_ITS | Continuity of Care Document ---
Author Name Unknown Organization [facility] ter Address [address] [place] [id number]- Care Team Providers Care Survey Director Name Role Phone Molly ARNOLD, Yoselyn Maldonado Primary Care Physician [place] [facility] 09/09[place]19 - 09/10/[address] [address]- [facility] Encounter Diagnosis Vomiting(Final) - 09/10/19 Discharge Disposition: A-D/C Home Attending Physician: Dante Hannah MD Admitting Physician: Dante Hannah MD Referring Physician: Not on Staff, Referring MD Allergies, Adverse Reactions, Alerts Substance Reaction Severity Status Motrin Active Medications No Home Meds Maintenance, 04/17/11 12:43:49 Start Date: 04/17/11 Status: Ordered Zofran ODT 4 mg oral tablet, disintegrating 1 tablet = 4 mg, By Mouth, 2 times a day, allow tablet to dissolve on tongue, # 6 tablet, 0 Refills, Maintenance, 09/10/19 6:42:00 EST, [facility]/pharmacy #[id number], 150, cm, 04/06/19 11:15:00 EDT, Height, 59.8, kg, 04/04/19 21:57:00 EDT, Dry Weight Start Date: 09/10/19 Stop Date: 09/13/19 Status: Ordered Problem List Condition Effective Dates Status Health Status Inform ant Coloboma of retina(Confirmed) Active Developmental delay(Confirmed) Active Gait problem(Confirmed) Active Microcephaly(Confirmed) Active Procedures Procedure Date Related Diagnosis Body Site Status Cholecystectomy; 07/29/16 Complete d Vital Signs Most recent to oldest [Reference Range]: 1 2 3 Oxygen Saturation [94-100 %] 97 % (09/10/19 6:49 AM) 97 % (09/10/19 3:47 AM) 99 % (09/10/19 3:16 AM) Pulse Rate [55-90 bpm] 72 bpm (09/10/19 6:49 AM) 82 bpm (09/10/19 3:47 AM) 93 bpm *H* (09/10/19 3:16 AM) Blood Pressure [90-138/55-84 mm Hg] 114/71mm Hg (09/10/19 6:49 AM) 116/78mm Hg (09/10/19 3:47 AM) 146/99mm Hg *H* (09/10/19 3:16 AM) Respiratory Rate [16-30 br/min] 14 br/min *L* (09/10/19 6:49 AM) 14 br/min *L* (09/10/19 3:47 AM) 20 br/min (09/10/19 3:16 AM) Temperature [96.8-100.4 DegF] 98.2 DegF (09/10/19 3:47 AM) 98 DegF (09/10/19 3:16 AM) 98 DegF (09/10/19 1:06 AM) Mode of Delivery (Oxygen) Room air (09/10/19 6:49 AM) Room air (09/10/19 3:47 AM) Room air (09/10/19 3:16 AM) Blood pressure sites Arm, right (09/10/19 3:16 AM) Arm, right (09/10/19 1:14 AM) Arm, right (09/09/19 10:48 PM) Temperature Route Oral (09/10/19 3:47 AM) Oral (09/10/19 3:16 AM) Oral (09/10/19 1:06 AM) Social History Social History Type Response Smoking Status Former smoker, quit more than 30 days ago entered on: 09/10/19 Sex
== END 2023-07-18 20:25 | disposition left against medical advice (07) ==
LOC: HO.ED 20:21
PROVIDERS: Emergency Provider Emergency Medicine; PCP Internal Medicine
DX: R11.2 Nausea with vomiting, unspecified (principal); R19.7 Diarrhea, unspecified

== ENCOUNTER 2023-07-31 11:07 | Outpatient (AMB) | payer OTHER, SELFPAY ==
--- NOTE | 2023-07-31 11:11 | MHC.OFFVIS ---
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 The patient had ParaGard IUD inserted 3-4 years ago . [facility] Medical History Cerebral palsy Depression UTI (urinary tract infection) Headache, migraine Gallbladder & bile duct stone with obstruction Surgical History Hx of cholecystectomy Family History Mother Breast cancer Diabetes Maternal Grandmother Lung cancer Paternal Grandfather Colon cancer Social History Alcohol intake: current Alcohol intake frequency: holidays/special occasions only Alcohol type: wine Patient Tobacco Use Status: Current someday Tobacco user Second Hand Smoke Exposure: No Substance Use Type: Marijuana Gender identity: Female Female Reproductive History Menstrual Age of Menarche: 11 Date of last menstrual period: 07/24/23 Review of Systems Const All systems reviewed & are unremarkable except as noted in HPI and below Reports as per HPI and Reports no additional complaints GI Reports no additional complaints Reports no additional complaints Assessment & Plan Assessment & Plan (1) Family planning: Code(s): Z30.09 - Encounter for other general counseling and advice on contraception Plan: Discussed with the patient the different options of control including control pills/Nuvaring, DMPA, different types of IUD ?s, sterilization and vasectomy. All the pros, cons, risks and benefits of each were discussed with the patient. The patient decided to go stay with ParaGard IUD; instruction given to patient to use nonsteroidal anti-inflammatory drugs day 1-3 Q with 6-8 hours in case of dysmenorrhea . All questions answered, the patient verbalized understanding Coding Level of Care Code Est Pt Level 3 (10643) Diagnoses Family planning Z30.09
[2023-07-31 11:15] VITALS: BP 126/80; BMI 23.6
== END 2023-07-31 12:28 | disposition home or self-care (01) ==
LOC: HO.HWS 11:07
PROVIDERS: PCP Internal Medicine; Visit Provider Obstetrics & Gynecology
DX: Z30.09 Encounter for other general counseling and advice on contraception (principal)
CPT/HCPCS: 99213

== ENCOUNTER → 2023-07-31 11:07 | Outpatient (BNVA) | payer OTHER, SELFPAY | PROVIDERS: PCP Internal Medicine; Visit Provider Obstetrics & Gynecology | DX: Z30.09 Encounter for other general counseling and advice on contraception (principal) | CPT/HCPCS: 99212 ==

== ENCOUNTER 2023-08-26 09:41 | Outpatient (REF) | payer OTHER, SELFPAY ==
--- NOTE | ~2023-08-26 | XR_ITS ---
EXAMINATION: XR FOOT, LEFT CLINICAL INFORMATION: Patient has CP, best images obtainable. Pain, rule out fracture COMPARISON: None available. TECHNIQUE: 5 views of the left foot. Limited visualization due to limited ability of patient to cooperate with positioning. FINDINGS: Bone mineralization is normal. Toes are curled, limiting evaluation. Oblique linear lucency through the shaft of the 5th toe proximal phalanx characteristic of a mildly displaced fracture. XR/XR foot LT min 3V IMPRESSION: Oblique linear lucency through the shaft of the 5th toe proximal phalanx characteristic of a mildly displaced fracture. This study was presented today August 27, 2023 at 1 PM for interpretation. PSA staff will provide results to referring provider at this time.
== END 2023-08-26 09:42 | disposition home or self-care (01) ==
LOC: HO.XRAY 09:41
PROVIDERS: PCP Internal Medicine; Visit Provider Internal Medicine
DX: S92.512A Displaced fracture of proximal phalanx of left lesser toe(s), initial encounter for closed fracture (principal)
CPT/HCPCS: 73630

== ENCOUNTER 2023-08-27 08:50 | Outpatient (REF) | payer OTHER, SELFPAY ==
[2023-08-27 09:02] LABS: MANUAL DIFF FLAG NO
[2023-08-27 09:35] LABS: Basophils Percent Auto 0.4 % (0-2); Eosinophils Absolute Auto 0.1 X10*3/uL (0.0-0.4); Eosinophils Percent Auto 0.9 % (0-4); Hematocrit 39.8 % (37.0-47.0); Hemoglobin 13.3 g/dl (12.0-16.0); Imm Gran Abs Auto 0.01 X10*3/uL (0.00-0.03); Imm Gran Pct Auto 0.2 % (0.0-0.4); Lymphocytes Absolute Auto 2.2 X10*3/uL (1.2-4.9); Lymphocytes Percent Auto 40.4 % (20-40); Mean Corpuscular HGB Conc 33.4 g/dl (31.0-35.0); Mean Corpuscular Hemoglobin 29.8 pg (27.0-33.0); Mean Corpuscular Volume 89.2 fL (80.0-98.0); Mean Platelet Volume 10.2 fL (9.4-12.3); Monocytes Absolute Auto 0.6 X10*3/uL (0.1-1.2); Monocytes Percent Auto 10.2 % (2-11); Neutrophils Absolute Auto 2.6 x10*3/uL (2.0-8.3); Neutrophils Percent Auto 47.9 % (45-73); Platelet Count 291 X10*3/uL (160-400); Red Blood Count 4.46 X10*6/uL (4.20-5.50); Red Cell Distribution Width 12.5 % (11.0-16.0); White Blood Count 5.5 X10*3/uL (4.8-10.8)
[2023-08-27 10:06] LABS: Cholesterol 203 mg/dL (<200); HDL Cholesterol 48 mg/dL (>40); LDL Cholesterol Calculated 139 mg/dL (<100); Triglycerides 81 mg/dL (<150)
[2023-08-27 10:24] LABS: Thyroid Stimulating Hormone 0.34 uIU/mL (0.32-4.0)
== END 2023-08-27 08:51 | disposition home or self-care (01) ==
LOC: HO.LAB 08:50
PROVIDERS: PCP Internal Medicine; Visit Provider Internal Medicine
DX: Z00.00 Encounter for general adult medical examination without abnormal findings (principal); E78.00 Pure hypercholesterolemia, unspecified; F32.9 Major depressive disorder, single episode, unspecified; F70 Mild intellectual disabilities; G24.8 Other dystonia; N32.81 Overactive bladder
CPT/HCPCS: 36415; 80061; 84443; 85025

== ENCOUNTER 2023-09-02 09:08 | Outpatient (REF) | payer OTHER, SELFPAY ==
--- NOTE | ~2023-09-02 | XR_ITS ---
EXAMINATION: XR FOOT, LEFT CLINICAL INFORMATION: Left foot pain COMPARISON: Left foot x-rays on 08/26/2023 TECHNIQUE: AP, lateral, and oblique views of the left foot. FINDINGS: BONES: Persistent nondisplaced oblique vertical fracture shaft of left fifth toe proximal phalanx is seen with well defined radiolucent fracture line and no signs of callus formation or bony union. JOINTS: Alignment of joints is normal. SOFT TISSUE: Soft tissue is normal. No radiopaque foreign body or abnormal air collection is seen. XR/XR foot LT min 3V IMPRESSION: Persistent nondisplaced oblique vertical fracture shaft of left fifth toe proximal phalanx without signs of bony union.
== END 2023-09-02 09:09 | disposition home or self-care (01) ==
LOC: HO.HOSX 09:08
PROVIDERS: Visit Provider Physician Assistant
DX: S92.505A Nondisplaced unspecified fracture of left lesser toe(s), initial encounter for closed fracture (principal); W18.40XA Slipping, tripping and stumbling without falling, unspecified, initial encounter; Y93.9 Activity, unspecified; Y92.9 Unspecified place or not applicable; Y99.9 Unspecified external cause status; Z79.899 Other long term (current) drug therapy
CPT/HCPCS: 73630; 99202

== ENCOUNTER 2023-09-02 10:08 | Outpatient (AMB) | payer OTHER, SELFPAY ==
--- NOTE | 2023-09-02 10:19 | A.OFFVIS_ITS ---
Intake Vital Signs 09/02/23 10:26 Height 4 ft 11 in Weight 116 lb BMI 23.4 Intake Visit Reasons: fc-left small toe fx Intake Note: Nichole cochran 32 year old female presents today for an evaluation of left small toe, DOI 08/24/23. Patient reports that she stumbled causing her to stub her small toe. She was seen by her PCP who ordered xrays and referred to orthopedics. Currently complains of a little pain. Denies numbness and tingling. Finds little relief with ibuprofen. Allergies acetaminophen [From TYLENOL] Allergy (Unknown, Verified 09/02/23 10:26) TOLD TO AVOID morphine [MORPHINE] Allergy (Unknown, Verified 09/02/23 10:26) HIVES Medication List - Last Reconciled 09/02/23 by Lorrie Ramon PA-C ibuprofen 600 mg PO Q6H PRN metronidazole 500 mg PO BID 7 days oxybutynin chloride ER 10 mg PO DAILY sertraline 50 mg PO DAILY HPI fc-left small toe fx HPI Details 32-year-old female who presents to the o ice today for evaluation of left foot injury s/p stumbling and stubbing her small toe, 08/24/23. She was seen by her PCP who ordered x-rays and referred her to our office. She currently states she has mild pain in her foot however she denies any numbness or tingling. She finds mild relief with ibuprofen. [facility] Medical History Cerebral palsy Depression UTI (urinary tract infection) Headache, migraine Gallbladder & bile duct stone with obstruction Surgical History Hx of cholecystectomy Family History Mother Breast cancer Diabetes Maternal Grandmother Lung cancer Paternal Grandfather Colon cancer Social History Alcohol intake: current Alcohol intake frequency: holidays/special occasions only Alcohol type: wine Patient Tobacco Use Status: Current someday Tobacco user Second Hand Smoke Exposure: No Substance Use Type: Marijuana Gender identity: Female Female Reproductive History Menstrual Age of Menarche: 11 Review of Systems Const All systems reviewed & are unremarkable except as noted in HPI and below Physical Exam Vital Signs: BMI result Body Mass Index 23.4 Extrem Other: Left foot: Normal to inspection. No bruising no swelling mild tenderness to palpation. NVI. Office Procedures Fracture Care Fracture Billing Code: Fracture Billing Code Results Reviewed Results Reviewed: Xrays were obtained in the office today and personally reviewed by me of the left foot: Oblique fracture through the shaft of the 5th toe proximal phalanx Assessment & Plan Assessment & Plan (1) Toe fracture, left: Code(s): S92.912A - Unspecified fracture of left toe(s), initial encounter for closed fracture Qualifiers: Encounter type: initial encounter Toe: lesser toe Fracture type: closed Phalanx: unspecified phalanx Fracture alignment: nondisplaced Qualified Code(s): S92.505A - Nondisplaced unspecified fracture of left lesser toe(s), initial encounter for closed fracture Plan She was given the option of short boot however she has cerebral palsy which makes her difficult to ambulate. She was given a post-op shoe which she will try to ambulate on, otherwise she will wear comfortable shoe which has stiff soles. I did explain that it takes about 6-8 weeks for full recovery. She will take Motrin and Tylenol for flareups and see us back in 6weeks for a follow-up, sooner if needed. Orders: Orders XR foot LT min 3V Today M79.672 - Pain in left foot Patient Instructions: Scribed for Lorrie Ramon PA-C, by Josue Ronquillo medical interpreter, on 09/02/2023 at 10:00 AM EST. ILorrie PA-C, have personally reviewed and agree with the information entered by the scribe. Coding Level of Care Code New Pt Level 3 (55778) Diagnoses Closed nondisplaced fracture of phalanx of lesser toe of left foot, unspecified phalanx, initial encounter S92.505A Encounter type: initial encounter Toe: lesser toe Fracture type: closed Phalanx: unspecified phalanx Fracture alignment: nondisplaced CPT Codes Fracture Care - Fracture Billing Code: Fracture Billing Code ([id number])
[2023-09-02 10:26] VITALS: BMI 23.4
== END 2023-09-02 10:50 | disposition home or self-care (01) ==
PROVIDERS: PCP Internal Medicine; Visit Provider Physician Assistant
DX: S92.505A Nondisplaced unspecified fracture of left lesser toe(s), initial encounter for closed fracture (principal); W22.8XXA Striking against or struck by other objects, initial encounter
CPT/HCPCS: 99203

== ENCOUNTER 2023-10-14 17:14 | Outpatient (REF) | payer OTHER, SELFPAY | END 2023-10-14 17:15 | disposition home or self-care (01) | LOC: HO.HOSX 17:14 | PROVIDERS: Visit Provider Physician Assistant | DX: Z13.89 Encounter for screening for other disorder (principal) ==

== ENCOUNTER 2023-10-21 10:12 | Outpatient (AMB) | payer OTHER, SELFPAY ==
--- NOTE | 2023-10-21 10:33 | A.OFFVIS_ITS ---
Intake Vital Signs 10/21/23 10:35 Height 4 ft 11 in Weight 116 lb BMI 23.4 Intake Visit Reasons: ov- left sm toe fx w/ xrays Intake Note: Nichole cochran 32 year old female presents today for a follow up of left small toe, DOI 08/24/23. Patient reports she is doing well, states no pain or discomfort. Allergies acetaminophen [From TYLENOL] Allergy (Unknown, Verified 10/21/23 10:35) TOLD TO AVOID morphine [MORPHINE] Allergy (Unknown, Verified 10/21/23 10:35) HIVES Medication List - Last Reconciled 10/21/23 by Lorrie Ramon PA-C ibuprofen 600 mg PO Q6H PRN metronidazole 500 mg PO BID 7 days oxybutynin chloride ER 10 mg PO DAILY sertraline 50 mg PO DAILY HPI ov- left sm toe fx w/ xrays HPI Details 33-year-old female returns to the office today for a follow-up left small toe fracture. She is ambulating with a regular street shoe. She denies pain. [facility] Medical History Cerebral palsy Depression UTI (urinary tract infection) Headache, migraine Gallbladder & bile duct stone with obstruction Surgical History Hx of cholecystectomy Family History Mother Breast cancer Diabetes Maternal Grandmother Lung cancer Paternal Grandfather Colon cancer Social History Alcohol intake: current Alcohol intake frequency: holidays/special occasions only Alcohol type: wine Patient Tobacco Use Status: Current someday Tobacco user Second Hand Smoke Exposure: No Substance Use Type: Marijuana Gender identity: Female Female Reproductive History Menstrual Age of Menarche: 11 Review of Systems Const All systems reviewed & are unremarkable except as noted in HPI and below Physical Exam Vital Signs: BMI result Body Mass Index 23.4 Extrem Other: Left foot: Normal to inspection. No bruising no swelling , no tenderness to palpation. NVI. Results Reviewed Results Reviewed: X-rays of the left foot obtained in the today show stable fracture through the small toe with interval healing. Assessment & Plan Assessment & Plan (1) Toe fracture, left: Code(s): S92.912A - Unspecified fracture of left toe(s), initial encounter for closed fracture Qualifiers: Encounter type: subsequent encounter Toe: lesser toe Fracture type: closed Phalanx: unspecified phalanx Fracture alignment: nondisplaced Fracture healing: with routine healing Qualified Code(s): S92.505D - Nondisplaced unspecified fracture of left lesser toe(s), subsequent encounter for fracture with routine healing Plan: She will continue to increase activities as tolerated and if symptoms arise otherwise concerns she will contact our office otherwise follow-up as needed. Orders: Orders XR foot LT min 3V / M79.672 - Pain in left foot XR foot LT min 3V Today M79.672 - Pain in left foot Coding Level of Care Code Global (35964) Diagnoses Closed nondisplaced fracture of phalanx of lesser toe of left foot with routine healing, unspecified phalanx, subsequent encounter S92.505D Encounter type: subsequent encounter Toe: lesser toe Fracture type: closed Phalanx: unspecified phalanx Fracture alignment: nondisplaced Fracture healing: with routine healing
[2023-10-21 10:35] VITALS: BMI 23.4
== END 2023-10-21 11:31 | disposition home or self-care (01) ==
PROVIDERS: PCP Internal Medicine; Visit Provider Physician Assistant
DX: S92.505D Nondisplaced unspecified fracture of left lesser toe(s), subsequent encounter for fracture with routine healing (principal)
CPT/HCPCS: 99213

== ENCOUNTER 2023-10-21 10:55 | Outpatient (REF) | payer OTHER, SELFPAY ==
--- NOTE | ~2023-10-21 | XR_ITS ---
EXAMINATION: XR FOOT, LEFT CLINICAL INFORMATION: Pain. COMPARISON: Prior examinations, most recently 09/02/2023. TECHNIQUE: AP and lateral views of the left foot are submitted. FINDINGS: Bony mineralization is normal. There is a pes cavus configuration. A mildly displaced oblique fracture is seen of the shaft of the fifth proximal phalanx. No dislocation or left ankle joint effusion is seen. Boehler's angle is normal. There is mild soft tissue swelling of the fifth toe, without gas or foreign body noted. XR/XR foot LT min 3V IMPRESSION: A mildly displaced oblique fracture seen of the proximal shaft of the left fifth toe. Alignment is stable, without new callus formation noted.
== END 2023-10-21 10:56 | disposition home or self-care (01) ==
LOC: HO.HOSX 10:55
PROVIDERS: Visit Provider Physician Assistant
DX: S92.505D Nondisplaced unspecified fracture of left lesser toe(s), subsequent encounter for fracture with routine healing (principal); M79.672 Pain in left foot; Z79.899 Other long term (current) drug therapy; X58.XXXD Exposure to other specified factors, subsequent encounter
CPT/HCPCS: 73630; 99212

== ENCOUNTER 2023-10-26 10:51 | Outpatient (AMB) | payer OTHER, SELFPAY ==
--- NOTE | 2023-10-26 11:35 | AM.OFFWIN_ITS ---
Intake Vital Signs 10/26/23 11:39 Height 4 ft 11 in BP 110/62 Blood Pressure Location Lt brachial Position Sitting Pulse 73 Pulse Source Pulse Oximeter Temp 98.3 F Temp Source Oral Pulse Oximetry (%) 98 Oxygen Delivery Method Room Air Intake Visit Reasons: Chest Pain/Flu + (10/12)([phone]) Intake Note: pt is here chest pain that started yesterday that has been coming and going with SOB pt says she was postive for the Flu on 10/12 Patient Tobacco Use Status: Current someday Tobacco user Allergies acetaminophen [From TYLENOL] Allergy (Unknown, Verified 10/26/23 11:38) TOLD TO AVOID morphine [MORPHINE] Allergy (Unknown, Verified 10/26/23 11:38) HIVES Do you need a note to return to daycare/school/sports/work: No HPI Chest Pain/Flu + (10/12)([phone]) HPI Details Patient is a 33 year old female with cerebral palsy who presents to the walk in with substernal chest pain that worsens with breathing and movement. She reports that she had become sick with influenza symptoms about 2 weeks ago, and she had been resolving until this began. She denies recent trauma, and denies cough, postnasal drip, runny nose, fever or chills, nausea vomiting or diarrhea, dizziness or weakness, myalgias or malaise, palpitations, syncope, headache, or other significant associated symptoms. [facility] Medical History Cerebral palsy Depression UTI (urinary tract infection) Headache, migraine Gallbladder & bile duct stone with obstruction Surgical History Hx of cholecystectomy Family History Mother Breast cancer Diabetes Maternal Grandmother Lung cancer Paternal Grandfather Colon cancer Social History Alcohol intake: current Alcohol intake frequency: holidays/special occasions only Alcohol type: wine Patient Tobacco Use Status: Current someday Tobacco user Second Hand Smoke Exposure: No Substance Use Type: Marijuana Gender identity: Female Female Reproductive History Menstrual Age of Menarche: 11 Review of Systems Const All systems reviewed & are unremarkable except as noted in HPI and below Physical Exam Vital Signs: Last Vital Signs Temp 98.3 F 10/26/23 11:39 Pulse 73 10/26/23 11:39 BP 110/62 10/26/23 11:39 Pulse Ox 98 10/26/23 11:39 Oxygen Delivery Method Room Air 10/26/23 11:39 Const General: cooperative, alert, awake, Physically active, in distress and well groomed; No comfortable, anxious, diaphoretic, intoxicated appearing, poor hygiene or tired appearing Nutritional Appearance: average body habitus Orientation/consciousness: patient oriented x3 Limitations: physical limitations (Cerebral palsy, but walks on her own) Neck Neck: Yes normal visual inspection Chest Chest palpation & inspection: normal inspection of the chest and tenderness sternum; no costochondral junction xxx, no costal cartilage xxx and no sternoclavicular joint xxx Resp Effort & Inspection: normal respiratory effort, able to speak in complete sentences, no audible wheezes, no cough, no grunting, not labored, no nasal flaring, no respiratory distress, no retractions, no tripod positioning, no use of accessory muscles and symmetric chest movement Auscultation: clear to auscultation bilaterally, no crackles, no rales, no rhonchi, no wheezes, lung sounds not diminished and No rub present Cardio Palpation: normal PMI Rate: regular rate Rhythm: regular rhythm Heart sounds: S1 normal heart sound present and S2 normal heart sound present Skin Other: Good color, warm and dry Neuro General: patient oriented x3 Psych Appearance: grossly normal Mental Status: mental status grossly normal Speech and movement: Other speech and movement exam findings present (Psych) (Baseline speech impediment/movement due to CP) Affect: normal affect Attitude: cooperative Thought process: Normal thought process present Insight: Good insight present (Psych) Judgement: Good judgement present (Psych) Assessment & Plan Assessment & Plan (1) Pleuritic chest pain: Code(s): R07.81 - Pleurodynia Plan: Patient has pleuritic chest pain and mild shortness of breath a few weeks after being diagnosed with influenza. Her vitals are stable and her EKG is nondiagnostic for a STEMI. She has no cough or fever or other symptoms that are apparent for pneumonia, but this is possible, as is pleurisy or a PE. As she is currently symptomatic with a moderate degree of discomfort, with symptoms worrisome for a life threatening issue, I advised that she consider evaluation at the emergency department, which she is amenable to. Expect was called in to [facility]. Orders: Orders AMB EKG-In Office 10/26/23 R07.89 - Other chest pain Coding Level of Care Code Est Pt Level 4 (04441) Diagnoses Pleuritic chest pain R07.81
[2023-10-26 11:39] VITALS: BP 110/62; PULSE 73; TEMP 36.8; O2SAT 98
== END 2023-10-26 13:25 | disposition home or self-care (01) ==
PROVIDERS: PCP Internal Medicine; Visit Provider Physician Assistant Medical
DX: R07.81 Pleurodynia (principal)
CPT/HCPCS: 93000; 99051; 99214

== ENCOUNTER 2024-02-17 13:27 | Outpatient (REF) | payer OTHER, SELFPAY ==
--- NOTE | ~2024-02-17 | XR_ITS ---
EXAMINATION: XR KNEE, RIGHT CLINICAL INFORMATION: Osteoarthritis COMPARISON: None available. TECHNIQUE: Four views of the right knee. FINDINGS: No fracture or dislocation. No suprapatellar joint effusion. Joint spaces are well-maintained. No appreciable degenerative changes. No localized soft tissue swelling. XR/XR knee RT 4V IMPRESSION: Unremarkable radiographs of the right knee.
[2024-02-17 16:34] LABS: CT PCR NOT DETECTED (Not Detect.); NG PCR NOT DETECTED (Not Detect.)
[2024-02-18 08:49] LABS: HIV AB/AG Nonreactive (Nonreactive); HIV Num 1 0.06 S/CO (0.00-0.99)
[2024-02-18 08:56] LABS: Syphilis Screen Nonreactive (Nonreactive)
[2024-02-18 12:02] LABS: Lyme Abs Screen <0.90 index
== END 2024-02-17 13:28 | disposition home or self-care (01) ==
LOC: HO.XRAY 13:27
PROVIDERS: PCP Internal Medicine; Visit Provider Internal Medicine
DX: E78.00 Pure hypercholesterolemia, unspecified (principal); F32.0 Major depressive disorder, single episode, mild; G80.3 Athetoid cerebral palsy; Z11.3 Encounter for screening for infections with a predominantly sexual mode of transmission; M17.11 Unilateral primary osteoarthritis, right knee
CPT/HCPCS: 73564; 86617; 86618; 86780; 87389; 87491; 87591